=== PATIENT | female | born 1950 | race Caucasian/White ===

== ENCOUNTER → 2017-09-07 09:29 | Outpatient (CLI) | payer MEDICARE, OTHER, SELFPAY ==
--- NOTE | 2017-09-07 09:33 | DI.US.S_ITS ---
PROCEDURE: US SOFT TISSUE HEAD AND NECK INDICATIONS: supraclavicular swelling at base of neck, bilateral TECHNIQUE: Real-time scanning was performed of the neck region of interest, with image documentation. COMPARISON: None. FINDINGS: No mass lesion, focal fluid collection or architectural distortion. IMPRESSION: Unremarkable exam. Dictated by: Crys Baires M.D. on 09/07/2017 at 12:36 Approved by: Crys Baires M.D. on 09/07/2017 at 12:43
== END ==
PROVIDERS: PCP Family Medicine; Visit Provider Family Medicine
DX: R22.1 Localized swelling, mass and lump, neck (principal)
CPT/HCPCS: 76536

== ENCOUNTER → 2017-09-19 07:03 | Outpatient (CLI) | payer MEDICARE, OTHER, SELFPAY ==
[2017-09-19 08:12] LABS: Add Manual Diff / Slide Review NO; Basophils Percent Auto 1.7 % (0-2); Eosinophils Percent Auto 2.4 % (2-4); Hematocrit 42.8 % (36-46); Hemoglobin 14.5 g/dL (12.0-16.0); Lymphocytes Percent Auto 33.7 % (25-40); Mean Corpuscular HGB Conc 33.8 % (30-36); Mean Corpuscular Hemoglobin 29.8 PG (26-34); Mean Corpuscular Volume 88.4 fL (80-100); Monocytes Percent Auto 7.8 % (3-14); Neutrophils Absolute Auto 2800 /uL (3000-5900); Neutrophils Percent Auto 54.4 % (50-75); Platelet Count 254 X10^3/uL (150-400); Red Blood Cell Count 4.84 X10^6/uL (4.0-5.2); Red Cell Distribution Width 13.1 % (11.6-14.8); White Blood Cell Count 5.2 X10^3/uL (4.5-11.0)
[2017-09-19 08:53] LABS: Alanine Aminotransferase 26 IU/L (9-52); Albumin 4.4 g/dL (3.5-5.0); Albumin Globulin Ratio 1.5 (1.0-2.8); Alkaline Phosphatase 59 U/L (38-126); Aspartate Aminotransferase 23 IU/L (14-36); Bilirubin Total 0.5 mg/dL (0.2-1.3); Blood Urea Nitrogen 18 mg/dL (7-17); Calcium 9.9 mg/dL (8.4-10.2); Carbon Dioxide 31 mmol/L (22-32); Chloride 102 mmol/L (98-107); Cholesterol 292 mg/dL (140-199); Estimated Glomerular Filt Rate > 60.0 mL/min (>60); Globulin 2.9 g/dL (1.7-4.1); Glucose 98 mg/dL (80-110); HDL Cholesterol 73 mg/dL (40-60); HEMOLYSIS < 15 (0-50); LDL Cholesterol Calculated 195 mg/dL (<100); Potassium 4.3 mmol/L (3.4-5.1); Sodium 143 mmol/L (137-145); Total Protein 7.3 g/dL (6.3-8.2); Triglycerides 121 mg/dL (35-150)
[2017-09-19 09:18] LABS: Thyroid Stimulating Hormone 0.92 uIU/mL (0.47-4.68)
== END ==
PROVIDERS: PCP Family Medicine; Visit Provider Family Medicine
DX: E78.5 Hyperlipidemia, unspecified (principal); I10 Essential (primary) hypertension; I25.10 Atherosclerotic heart disease of native coronary artery without angina pectoris; E04.1 Nontoxic single thyroid nodule
CPT/HCPCS: 36415; 80053; 80061; 84443; 85025

== ENCOUNTER → 2017-10-02 09:38 | Outpatient (CLI) | payer MEDICARE, OTHER, SELFPAY | PROVIDERS: PCP Family Medicine; Visit Provider Family Medicine | DX: M85.852 Other specified disorders of bone density and structure, left thigh (principal); Z78.0 Asymptomatic menopausal state; Z90.722 Acquired absence of ovaries, bilateral | CPT/HCPCS: 77080 ==

== ENCOUNTER → 2017-10-12 10:35 | Outpatient (CLI) | payer MEDICARE, OTHER, SELFPAY ==
[2017-10-12 12:17] LABS: Vitamin D 25 Hydroxy (D3) 60.2 ng/mL (30.0-100.0)
== END ==
PROVIDERS: PCP Family Medicine; Visit Provider Family Medicine
DX: M85.80 Other specified disorders of bone density and structure, unspecified site (principal)
CPT/HCPCS: 36415; 82306

== ENCOUNTER 2017-11-02 08:30 | Outpatient (RCR) | payer MEDICARE, OTHER, SELFPAY ==
[2017-08-08 09:13] VITALS: BP 146/82; RESP 16; O2SAT 100; BMI 24.2
--- NOTE | 2017-08-08 10:51 | CR.IEVALNOTE ---
Addendum entered and electronically signed by June Gonzalez R.N. 08/08/17 13:22: * Original Note: Addendum entered and electronically signed by June Gonzalez R.N. 08/08/17 10:58: CHF. 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 BLOCKED LAD . EF HAS BEEN DECREASING SINCE THAT TIME AICD Yes Pacemaker Yes Heart Rhythm BALL MILL MIXER-BIVENTRICULAR PACING. FREQUENT PVS AND PACS Right Arm Blood Pressure (90/60-120/80 mmHg) 146/82 H Blood Pressure Method Manual Cuff/Auscultation BP Comment: LEFT ARM 144/80 Apical Resting Heart Rate: 60 Resting HR Comment: PACER/ICD. Target Heart Rate: 80 Pulse Assessment Method Pulse Ox/Monitor Respiratory Rate (12-24 breaths/min) 16 Respiratory Effort Non-Labored Respiratory Depth Normal Lung Sounds: CLEAR BILATERALLY Pulse Oximetry (91-100 %) 100 Nasal Cannula No Cardiac Rehabilitation Exercise Fall Risk History of Falling (Immediate or Yes Previous) Secondary Diagnosis (More Than 2 Medical No Diagnoses) Ambulatory Aid None/bed rest/nurse assist IV/Heparin Lock No Gait/Transferring Normal/bedrest/immobile Mental Status Oriented to own ability Score Total 25 Risk Level Moderate Fall Risk Action Implement Moderate Fall Risk Precautions Assistive Devices None Cardiac Rehabilitation Nutrition Evaluation Recent Lipid Blood Test Yes Date Blood Test Drawn 06/03/15 Total Cholesterol 297 Triglycerides 72 HDL 94 LDL 189 Lipid Medications No Goal for Lipids DOES NOT TOLERATE STATINS History of Diabetes No Cardiac Rehabilitation Weight Management Plan Height 167.64 cm Weight 68.039 kg Body Mass Index (BMI) 24.2 Girth Measurement (in inches) (cm) 31.5 Patient Goal(s) Lose 1-2 of Girth Lose 5-10 lbs Body Weight Vitamins & Supplements Yes Use Daily Intake Type RED WINE Nutrition Evaluation Referral to Diabetes Education No Nurse/Patient Discussion Yes Diet Discussion EATS HEALTHY Patient Following Diet Plan Yes Diet Dash Education 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 WILL ASSIST PEARL IN ATTAINING HER GOAL OF WALKING AN HOUR WITH HER FRIEND. THIS WILL GIVE HER CONFEDENCE. 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 HAS BEEN INCREASINGLY TIRED. HX OF FREQUENT PVS - 23% OF HER RHYTHM HAD BEEN PVCS. 5 WEEKS AGO WITH NO IMPROVEMENT IN EF AND FREQ PVCS BALL MILL MIXER IMPLANTED. Treatment Prescribed for Individual Yes Needs Date 08/08/17 Psych Consult No Discussion with Patient No Psychotropic Medications No PHQ9 Score 4 HQ Scoring Scale 0-4 = None Document 08/08/17 10:18 CFS (Rec: 08/08/17 10:51 CFS [id number]) Cardiac Rehabilitation Exercise Fall Risk Comment patient will use a saucer under physio ball and be next to a railing to start with and will reassess in 30 days. [place] Activity Status Index 9.89 Home Exercise walking Mode Comment: Home TM and outside Duration Comment: 10-20min Frequency Comment: daily Symptoms: Joint Pain Joint Stiffness Joint Swelling Body Alignment Posture Good Posture Ambulation Assistive Device None Comment R knee-cartilage, bilat arthritis-knees Exercise TM METS 2.91 Angina with Exercise no Exercise Tolerance Good Additional Comment frequent PVC's CR Pre Exercise Evaluation Orientation Self Pulse Check APOLINAR PRE Scale Exercise Safety Equipment Orientation Warm Up/Cool Down Patient Short-term Goal(s) Return to walking 1/hr daily either on home TM or outside. Build up endurance in CR to do full 40 min or cardio while in CR in 6wks. Patient Prison Goal(s) Return to walking trails in [place] with friend and dogs, walking for 1-2hrs. Increase stamina and balance so that there is no falling or trips by eventually using physio ball without a saucer in 12 wks. CR Exercises Prescription Exercise Duration (minutes) 20 METs (resistance level) 3 Frequency 2xwk RPE 11-14 Comment left side precautions, AICD implant Exercise Duration (minutes) 20 METs (resistance level) 3 Frequency 2xwk RPE 11-14 Pounds 3 Number of Reps 12 Number of Sets 2 Frequency 1xwk RPE 13-14 Band Resistance 3 Number of Reps 12 Number of Sets 1 Frequency 1xwk RPE 13-14
--- NOTE | 2017-08-08 11:17 | CR.IEVALNOTE ---
Addendum entered and electronically signed by Cherri Wilkes R.N. 08/10/17 15:52: * Addendum entered and electronically signed by Cherri Wilkes R.N. 08/10/17 07:52: Computer issues. Resending to MD for signature. Original Note: CR Initial Assessment Report CR Cardiac Rehab Initial Assessment Start: 08/08/17 09:12 Freq: Status: Active Protocol: Document 08/08/17 09:13 [facility] (Rec: 08/08/17 10:02 [facility] [id number]) Cardiac Rehabilitation Exercise Risk Risk High % 35 EF Comment: STENT 8 YEARS AGO. BLOCKED LAD . EF HAS BEEN DECREASING SINCE THAT TIME AICD Yes Pacemaker Yes Heart Rhythm PARTS COUNTERPERSON-BIVENTRICULAR PACING. FREQUENT PVS AND PACS Right Arm Blood Pressure (90/60-120/80 mmHg) 146/82 H Blood Pressure Method Manual Cuff/Auscultation BP Comment: LEFT ARM 144/80 Apical Resting Heart Rate: 60 Resting HR Comment: PACER/ICD. Target Heart Rate: 80 Pulse Assessment Method Pulse Ox/Monitor Respiratory Rate (12-24 breaths/min) 16 Respiratory Effort Non-Labored Respiratory Depth Normal Lung Sounds: CLEAR BILATERALLY Pulse Oximetry (91-100 %) 100 Nasal Cannula No Cardiac Rehabilitation Exercise Fall Risk History of Falling (Immediate or Yes Previous) Secondary Diagnosis (More Than 2 Medical No Diagnoses) Ambulatory Aid None/bed rest/nurse assist IV/Heparin Lock No Gait/Transferring Normal/bedrest/immobile Mental Status Oriented to own ability Score Total 25 Risk Level Moderate Fall Risk Action Implement Moderate Fall Risk Precautions Assistive Devices None Cardiac Rehabilitation Nutrition Evaluation Recent Lipid Blood Test Yes Date Blood Test Drawn 06/03/15 Total Cholesterol 297 Triglycerides 72 HDL 94 LDL 189 Lipid Medications No Goal for Lipids DOES NOT TOLERATE STATINS History of Diabetes No Cardiac Rehabilitation Weight Management Plan Height 167.64 cm Weight 68.039 kg Body Mass Index (BMI) 24.2 Girth Measurement (in inches) (cm) 31.5 Patient Goal(s) Lose 1-2 of Girth Lose 5-10 lbs Body Weight Vitamins & Supplements Yes Use Daily Intake Type RED WINE Nutrition Evaluation Referral to Diabetes Education No Nurse/Patient Discussion Yes Diet Discussion EATS HEALTHY Patient Following Diet Plan Yes Diet Dash Education Primary Language [place] [employer] Director Required No Hearing Ability Normal Visual Impairment No Limitations Education on Intake Lightheaded or Dizzy General Malaise Tobacco Use N/A Hx Hypertension Yes Goal <130/80 Medications COREG & ENALAPRIL Goal of BP <130/80 Yes Medications Reconciled Yes CR Psychosocial Evaluation Goal STATES IS TOO TIRED TO COMPLETE HER HOUR WALK WITH HER FRIEND. WILL ASSIST PEARL IN ATTAINING HER GOAL OF WALKING AN HOUR WITH HER FRIEND. THIS WILL GIVE HER CONFEDENCE. 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 HAS BEEN INCREASINGLY TIRED. HX OF FREQUENT PVS - 23% OF HER RHYTHM HAD BEEN PVCS. 5 WEEKS AGO WITH NO IMPROVEMENT IN EF AND FREQ PVCS PARTS COUNTERPERSON IMPLANTED. Treatment Prescribed for Individual Yes Needs Date 08/08/17 Psych Consult No Discussion with Patient No Psychotropic Medications No PHQ9 Score 4 HQ Scoring Scale 0-4 = None Document 08/08/17 10:18 CFS (Rec: 08/08/17 10:51 CFS [id number]) Cardiac Rehabilitation Exercise Fall Risk Comment patient will use a saucer under physio ball and be next to a railing to start with and will reassess in 30 days. [place] Activity Status Index 9.89 Home Exercise walking Mode Comment: Home TM and outside Duration Comment: 10-20min Frequency Comment: daily Symptoms: Joint Pain Joint Stiffness Joint Swelling Body Alignment Posture Good Posture Ambulation Assistive Device None Comment R knee-cartilage, bilat arthritis-knees Exercise TM METS 2.91 Angina with Exercise no Exercise Tolerance Good Additional Comment frequent PVC's CR Pre Exercise Evaluation Orientation Self Pulse Check APOLINAR PRE Scale Exercise Safety Equipment Orientation Warm Up/Cool Down Patient Short-term Goal(s) Return to walking 1/hr daily either on home TM or outside. Build up endurance in CR to do full 40 min or cardio while in CR in 6wks. Patient [facility] Picker Goal(s) Return to walking trails in [place] with friend and dogs, walking for 1-2hrs. Increase stamina and balance so that there is no falling or trips by eventually using physio ball without a saucer in 12 wks. CR Exercises Prescription Exercise Duration (minutes) 20 METs (resistance level) 3 Frequency 2xwk RPE 11-14 Comment left side precautions, AICD implant Exercise Duration (minutes) 20 METs (resistance level) 3 Frequency 2xwk RPE 11-14 Pounds 3 Number of Reps 12 Number of Sets 2 Frequency 1xwk RPE 13-14 Band Resistance 3 Number of Reps 12 Number of Sets 1 Frequency 1xwk RPE 13-14
--- NOTE | 2017-09-06 10:29 | CR.REVALNOTE ---
CR Re-Assessment Report Dx: CHF CR Cardiac Rehab Re-Assessment Start: 09/06/17 09:41 Freq: Status: Active Protocol: Document 09/06/17 09:41 ARTHUR (Rec: 09/06/17 09:49 [facility] [id number]) Cardiac Rehab Exercise Risk Re-Eval Dx: CHF Comment: EF 35 %, NO REPEAT CURRENTLY SCHEDULED. ADVISED TO CALL AND INQUIRE TO SEE IF THEY WANTA NEW ECHO PRIOR TO THE F/ U APPT IN Risk High Heart Rhythm SB W/FREQUENT PVC'S. RECENTLY HAD PACER ADJUSTED AND CARVEDILOL UPPED TO 12.5MG BID Cardiac Rehab Nutrition Re-Eval Lipids Re-Drawn No Lipid Medications No: NOT TOLERANT Goal for Lipids SEEING HER PRIMARY CARE PCP SOON WITH LABS TO BE ORDERED. LAST LIPID >2 YEARS OLD ADVISED TO ASK FOR A REPEAT. History of Diabetes No Weight 68.039 kg Progress to Weight Goal NO CHANGE. FEELS SHE'S STUCK Dietary Consult No Nurse/Patient Discussion Yes Nutrition Class Yes Dietary Goal verbalized by Patient Yes: DISCUSSED INTAKE, KNOWS SHE NEEDS TO DO PORTION CONTROL Progress Note DISCUSSED CUTTING OUT THE FROZEN MEALS IN LIEU OF SELF- PREPARED ONES Education Tobacco Use N/A Hypertension 126/76 PRE, 112/64 POST Medications CARVEDILOL, ENALIPRIL, LASIX Progress to Goal AT GOAL Medication Reconciled YES CR Psychosocial Re-Evaluation Progress to Goal FEELS GOOD THAT SHE CAN NOW DO AN HOUR AT A TIME WALKING AT HOME. WANTS HER EF TO IMPROVE AND IS LOOKING FORWARD TO HER TRIP TO [place] Stress Managed YES Psych Consult No Stress Management Class Yes Uses Stress Management Skills Yes Coping Techniques Yes Relaxation Techniques Yes Positive Support Yes CR Psychosocial Provider Eval Treatment Prescribed for Individual Yes Needs No Treatment Change Yes: Please Continue with Cardiopulmonary Rehabilitation as Ordered Date 09/06/17 Document 09/06/17 10:17 AA (Rec: 09/06/17 10:28 AA [id number]) CR Lifestyle Re-Assessment Home Exercise Yes Mode Comment walking Duration Comment 20-30 mins Frequency Comment daily Achieved Exercise Re-Evaluation Nustep MET Goal 4.65 Treadmill MET Goal 6.09 RPE n/a Weights 3 Bands 4 Equipment Goals TM: 7.0 METS NS: 5.5 METS Number/Value 5 LVL 4 Progress to Goal INCREASE TOLERATED % Improvement TM: 156% IMP NS: 47% IMP Short Term Walking 20-30 mins daily at home. Is able to complete full 40 mins of cardio in CR. Shelter Walking dog with friends, no trails or elevations yet, bc of knee pain with incline. No longer needs saucer under physio ball.
--- NOTE | 2017-10-05 10:20 | CR.REVALNOTE ---
CR RE Assessment Report DX: ISCHEMIC CARDIOMYOPATHY. CHF CR Cardiac Rehab Re-Assessment Start: 09/06/17 09:41 Freq: Status: Active Protocol: Document 09/06/17 09:41 ARTHUR (Rec: 09/06/17 09:49 AR[facility] [id number]) Cardiac Rehab Exercise Risk Re-Eval Dx: CHF Comment: EF 35 %, NO REPEAT CURRENTLY SCHEDULED. ADVISED TO CALL AND INQUIRE TO SEE IF THEY WANTA NEW ECHO PRIOR TO THE F/ U APPT IN Risk High Heart Rhythm SB W/FREQUENT PVC'S. RECENTLY HAD PACER ADJUSTED AND CARVEDILOL UPPED TO 12.5MG BID Cardiac Rehab Nutrition Re-Eval Lipids Re-Drawn No Lipid Medications No: NOT TOLERANT Goal for Lipids SEEING HER PRIMARY CARE PCP SOON WITH LABS TO BE ORDERED. LAST LIPID >2 YEARS OLD ADVISED TO ASK FOR A REPEAT. History of Diabetes No Weight 68.039 kg Progress to Weight Goal NO CHANGE. FEELS SHE'S STUCK Dietary Consult No Nurse/Patient Discussion Yes Nutrition Class Yes Dietary Goal verbalized by Patient Yes: DISCUSSED INTAKE, KNOWS SHE NEEDS TO DO PORTION CONTROL Progress Note DISCUSSED CUTTING OUT THE FROZEN MEALS IN LIEU OF SELF- PREPARED ONES Education Tobacco Use N/A Hypertension 126/76 PRE, 112/64 POST Medications CARVEDILOL, ENALIPRIL, LASIX Progress to Goal AT GOAL Medication Reconciled YES CR Psychosocial Re-Evaluation Progress to Goal FEELS GOOD THAT SHE CAN NOW DO AN HOUR AT A TIME WALKING AT HOME. WANTS HER EF TO IMPROVE AND IS LOOKING FORWARD TO HER TRIP TO [place] Stress Managed YES Psych Consult No Stress Management Class Yes Uses Stress Management Skills Yes Coping Techniques Yes Relaxation Techniques Yes Positive Support Yes CR Psychosocial Provider Eval Treatment Prescribed for Individual Yes Needs No Treatment Change Yes: Please Continue with Cardiopulmonary Rehabilitation as Ordered Date 09/06/17 Document 09/06/17 10:17 AA (Rec: 09/06/17 10:28 AA [id number]) CR Lifestyle Re-Assessment Home Exercise Yes Mode Comment walking Duration Comment 20-30 mins Frequency Comment daily Achieved Exercise Re-Evaluation Nustep MET Goal 4.65 Treadmill MET Goal 6.09 RPE n/a Weights 3 Bands 4 Equipment Goals TM: 7.0 METS NS: 5.5 METS Number/Value 5 LVL 4 Progress to Goal INCREASE TOLERATED % Improvement TM: 156% IMP NS: 47% IMP Short Term Walking 20-30 mins daily at home. Is able to complete full 40 mins of cardio in CR. Group Home Walking dog with friends, no trails or elevations yet, bc of knee pain with incline. No longer needs saucer under physio ball. Document 10/05/17 09:09 AR[facility] (Rec: 10/05/17 09:13 [facility] [id number]) Cardiac Rehab Exercise Risk Re-Eval Dx: ISCHEMIC CARDIOMYOPATHY Comment: DUE FOR REPEAT ECHO AFTER F/U WITH DR. ALEXANDER Risk High Heart Rhythm SR WITH PVC'S Cardiac Rehab Nutrition Re-Eval Lipids Re-Drawn Yes Date 09/19/17 Total Cholesterol 292 Triglycerides 121 HDL 73 LDL 195 Lipid Medications No: COQ-10 AND FISH OIL Goal for Lipids NOWHERE NEAR GOAL. MEETING AGAIN WITH PCP TO DISCUSS. IS INTOLERANT TO STATINS History of Diabetes No Weight 67.585 kg Progress to Weight Goal LOST 1 #, STILL WANTS TO TAKE OFF MORE Dietary Consult No Nurse/Patient Discussion Yes Nutrition Class Yes: ATTENDED GIVEN Dietary Goal verbalized by Patient Yes Progress Note PT HAS MODIFIED SOME OF THE FROZEN MEALS SHE HAS BEEN EATING IN LIEU OF FRESH STUFF Education Tobacco Use N/A Hypertension 122/78 PRE, 118/78 POST Medications VASOTEC, COREG Progress to Goal AT GOAL Medication Reconciled NO CHANGES SINCE LAST ASSESSMENT CR Psychosocial Re-Evaluation Progress to Goal FEELING BETTER GRADUALLY, STILL TIRED AFTER BUSY DAYS Stress Managed YES Psych Consult No Stress Management Class Yes Uses Stress Management Skills Yes Coping Techniques Yes Relaxation Techniques Yes Positive Support Yes CR Psychosocial Provider Eval Treatment Prescribed for Individual Yes Needs No Treatment Change Yes: Please Continue with Cardiopulmonary Rehabilitation as Ordered Date 10/05/17 Document 10/05/17 10:15 AA (Rec: 10/05/17 10:20 AA [id number]) Cardiac Rehab Exercise Risk Re-Eval Apical Resting Heart Rate: 59 Target Heart Rate: 103 Target Heart Rate Comment: HIIT HR 117 Strength: Normal Pulse Rhythm: Regular CR Lifestyle Re-Assessment Home Exercise Yes Mode Comment Walking Duration Comment 45 mins Frequency Comment daily Achieved Exercise Re-Evaluation Nustep MET Goal 5.08 Treadmill MET Goal 7.23 Weights 5 Bands 4 Equipment Goals TM 8.0 METS NS 6.0 METS Number/Value 6 LVL 5 Progress to Goal INCREASE TOLERATED % Improvement TM 203% NS 60% Short Term Walking 45 mins, about 2 miles daily at home. Is gradually increasing incline. Group Home Walking dog with friends, is walking half way on the trails and back on the road, still experiencing knee pain with incline.
--- NOTE | 2017-10-11 16:08 | CR.EDUC ---
CR Education Report CR Education Start: 08/08/17 09:12 Freq: Status: Active Protocol: Document 08/08/17 10:03 JC (Rec: 08/08/17 10:03 [facility] [id number]) CR Education Education DISCUSSED HER AICD AND HER TACHYCARDIA AN DWHEN TO NOTIFY MD. Document 08/08/17 11:15 JCP (Rec: 08/08/17 11:18 [facility] [id number]) CR Education Education CALLED AND LEFT MESSAGE FOR DR Aubrie VELAZQUEZ RN TO FAX STRIPS OF HER RHYTHM. WITH LITTLE EXERTION [id number] - ASYMPTOMATIC.[place]AS MESSAGE RETURNED FROM [facility] AND STRIPS SENT TO .NICOLAS 08/08/17 11:17 CR Initial Eval. Note by June Gonzalez Addendum entered and electronically signed by Cherri Wilkes R.N. 08/10/17 15:52: * Addendum entered and electronically signed by Cherri Wilkes R.N. 08/10/17 07:52: Computer issues. Resending to MD for signature. Original Note: CR Initial Assessment Report CR Cardiac Rehab Initial Assessment Start: 08/08/17 09:12 Freq: Status: Active Protocol: Document 08/08/17 09:13 JCP (Rec: 08/08/17 10:02 [facility] [id number]) Cardiac Rehabilitation Exercise Risk Risk High % 35 EF Comment: STENT 8 YEARS AGO. BLOCKED LAD . EF HAS BEEN DECREASING SINCE THAT TIME AICD Yes Pacemaker Yes Heart Rhythm PRIVATE SECRETARY-BIVENTRICULAR PACING. FREQUENT PVS AND PACS Right Arm Blood Pressure (90/60-120/80 mmHg) 146/82 H Blood Pressure Method Manual Cuff/Auscultation BP Comment: LEFT ARM 144/80 Apical Resting Heart Rate: 60 Resting HR Comment: PACER/ICD. Target Heart Rate: 80 Pulse Assessment Method Pulse Ox/Monitor Respiratory Rate (12-24 breaths/min) 16 Respiratory Effort Non-Labored Respiratory Depth Normal Lung Sounds: CLEAR BILATERALLY Pulse Oximetry (91-100 %) 100 Nasal Cannula No Cardiac Rehabilitation Exercise Fall Risk History of Falling (Immediate or Yes Previous) Secondary Diagnosis (More Than 2 Medical No Diagnoses) Ambulatory Aid None/bed rest/nurse assist IV/Heparin Lock No Gait/Transferring Normal/bedrest/immobile Mental Status Oriented to own ability Score Total 25 Risk Level Moderate Fall Risk Action Implement Moderate Fall Risk Precautions Assistive Devices None Cardiac Rehabilitation Nutrition Evaluation Recent Lipid Blood Test Yes Date Blood Test Drawn 06/03/15 Total Cholesterol 297 Triglycerides 72 HDL 94 LDL 189 Lipid Medications No Goal for Lipids DOES NOT TOLERATE STATINS History of Diabetes No Cardiac Rehabilitation Weight Management Plan Height 167.64 cm Weight 68.039 kg Body Mass Index (BMI) 24.2 Girth Measurement (in inches) (cm) 31.5 Patient Goal(s) Lose 1-2 of Girth Lose 5-10 lbs Body Weight Vitamins & Supplements Yes Use Daily Intake Type RED WINE Nutrition Evaluation Referral to Diabetes Education No Nurse/Patient Discussion Yes Diet Discussion EATS HEALTHY Patient Following Diet Plan Yes Diet Dash Education Primary Language CONGOLESE Obstetrics Gyn Required No Hearing Ability Normal Visual Impairment No Limitations Education on Intake Lightheaded or Dizzy General Malaise Tobacco Use N/A Hx Hypertension Yes Goal <130/80 Medications COREG & ENALAPRIL Goal of BP <130/80 Yes Medications Reconciled Yes CR Psychosocial Evaluation Goal STATES IS TOO TIRED TO COMPLETE HER HOUR WALK WITH HER FRIEND. WILL ASSIST PEARL IN ATTAINING HER GOAL OF WALKING AN HOUR WITH HER FRIEND. THIS WILL GIVE HER CONFEDENCE. Identifies Stressors HER TIREDNESS IS STRESSFUL FOR HER Psych Consult No Discussion with Patient No Psychotropic Medications No PHQ9 Score 4 HQ Scoring Scale 0-4 = None Positive Support AND FRIEND Situation LIVES AT HOME ON [facility] WITH Employment Status Retired Occupation / Employer FLIGHT ATTENDENT Ready for Change Number +32 CR Psychosocial Eval Continued Sternotomy Incision N/A Graft Site & Incision N/A Heart Murmur NONE Lung Sounds CLEAR Edema NONE Stress Management Class Yes Heart Disease & Emotion Film Yes Readiness Cooperative Motivated Patient's Story SINCE STENT 8 YEARS AGO EF HAS DECLINED AND HAS NOT CHANGED FROM 35%. HAS BEEN INCREASINGLY TIRED. HX OF FREQUENT PVS - 23% OF HER RHYTHM HAD BEEN PVCS. 5 WEEKS AGO WITH NO IMPROVEMENT IN EF AND FREQ PVCS PRIVATE SECRETARY IMPLANTED. Treatment Prescribed for Individual Yes Needs Date 08/08/17 Psych Consult No Discussion with Patient No Psychotropic Medications No PHQ9 Score 4 HQ Scoring Scale 0-4 = None Document 08/08/17 10:18 CFS (Rec: 08/08/17 10:51 CFS [id number]) Cardiac Rehabilitation Exercise Fall Risk Comment patient will use a saucer under physio ball and be next to a railing to start with and will reassess in 30 days. [place] Activity Status Index 9.89 Home Exercise walking Mode Comment: Home TM and outside Duration Comment: 10-20min Frequency Comment: daily Symptoms: Joint Pain Joint Stiffness Joint Swelling Body Alignment Posture Good Posture Ambulation Assistive Device None Comment R knee-cartilage, bilat arthritis-knees Exercise TM METS 2.91 Angina with Exercise no Exercise Tolerance Good Additional Comment frequent PVC's CR Pre Exercise Evaluation Orientation Self Pulse Check APOLINAR PRE Scale Exercise Safety Equipment Orientation Warm Up/Cool Down Patient Short-term Goal(s) Return to walking 1/hr daily either on home TM or outside. Build up endurance in CR to do full 40 min or cardio while in CR in 6wks. Patient Fpc Goal(s) Return to walking trails in [place] with friend and dogs, walking for 1-2hrs. Increase stamina and balance so that there is no falling or trips by eventually using physio ball without a saucer in 12 wks. CR Exercises Prescription Exercise Duration (minutes) 20 METs (resistance level) 3 Frequency 2xwk RPE 11-14 Comment left side precautions, AICD implant Exercise Duration (minutes) 20 METs (resistance level) 3 Frequency 2xwk RPE 11-14 Pounds 3 Number of Reps 12 Number of Sets 2 Frequency 1xwk RPE 13-14 Band Resistance 3 Number of Reps 12 Number of Sets 1 Frequency 1xwk RPE 13-14 Initialized on 08/08/17 11:17 - END OF NOTE Document 08/10/17 10:12 ARTHUR (Rec: 08/10/17 10:12 [facility] [id number]) CR Education Education Pt intro and history review. Updated Coreg and discussed HR and ectopy. Document 08/16/17 11:25 ARTHUR (Rec: 08/16/17 11:25 [facility] [id number]) CR Education Education mets with kerri Document 08/23/17 11:58 JCP (Rec: 08/23/17 11:58 JCP [id number]) CR Education Education AED REVIEW Document 08/30/17 14:20 JCP (Rec: 08/30/17 14:21 JCP [id number]) CR Education Education MET WITH HARESH STONE RD Document 09/06/17 09:41 ARTHUR (Rec: 09/06/17 09:41 ARTHUR [id number]) CR Education Education HOLISTIC NUTRITION AND MEDITATION WITH SHANTELLE Document 09/20/17 09:41 ARTHUR (Rec: 09/20/17 09:41 AR[facility] [id number]) CR Education Education MRSA WITH CHIVO Document 09/25/17 11:37 JCP (Rec: 09/25/17 11:39 JCP [id number]) CR Education Education DISCUSSED HOW HER AICD IS PROGRAMMED AND WHAT HAPPENS IF IT GOES OFF. CONCERNED ABOUT HER TRIP TO [place] IN THE FALL. ALSO DISCUSSED CPR AND THAT IF IT GOES OFF SHE WILL BE CONSCIOUS AND NOT TO DO CPR. NICOLAS Document 09/27/17 15:51 JCP (Rec: 09/27/17 15:52 JCP [id number]) CR Education Education ANTI INFLAMMATORY FOODS AND MEDITATION Document 10/04/17 15:08 JCP (Rec: 10/04/17 15:09 JCP [id number]) CR Education Education MET WITH HARESH STONE RD Document 10/11/17 16:07 JCP (Rec: 10/11/17 16:08 JCP [id number]) CR Education Education MET WITH KERRI ANAYA METS
[2017-11-02 15:55] VITALS: BP 138/88; BMI 25.0
== END 2017-11-03 08:26 ==
LOC: CAR 08:30
PROVIDERS: PCP Family Medicine; Visit Provider Internal Medicine Cardiovascular Disease
DX: I50.22 Chronic systolic (congestive) heart failure (principal); I25.5 Ischemic cardiomyopathy
CPT/HCPCS: 93798

== ENCOUNTER → 2017-12-25 10:49 | Outpatient (CLI) | payer MEDICARE, OTHER, SELFPAY ==
--- NOTE | 2017-12-25 | DI.MG.S_ITS ---
BILATERAL DIGITAL SCREENING MAMMOGRAM 3D/2D WITH CAD: 12/25/2017 CLINICAL: Routine screening. Family history of breast cancer. Comparison is made to exams dated: 10/27/2015 mammogram, 11/01/2016 mammogram, and 10/09/2014 mammogram - [facility]. The tissue of both breasts is heterogeneously dense. This may lower the sensitivity of mammography. Current study was also evaluated with a Computer Aided Detection (CAD) system. No significant masses, calcifications, or other findings are seen in either breast. There has been no significant interval change. IMPRESSION: NEGATIVE There is no mammographic evidence of malignancy. A 1 year screening mammogram is recommended. This exam was interpreted at Station ID: [id number]. NOTE: For mammograms, a report in lay terms will be sent to the patient. Approximately 15% of breast malignancies will not be visualized mammographically. In the management of a palpable breast mass, a negative mammogram must not discourage biopsy of a clinically suspicious lesion. Electronically Signed By: Vita gtz/vernon:12/25/2017 11:43:28 letter sent: Normal Exam ACR BI-RADS Category 1: Negative 3341F
== END ==
PROVIDERS: PCP Family Medicine; Visit Provider Family Medicine
DX: Z12.31 Encounter for screening mammogram for malignant neoplasm of breast (principal); Z80.3 Family history of malignant neoplasm of breast
CPT/HCPCS: 77063; 77067

== ENCOUNTER → 2018-11-01 09:05 | Outpatient (CLI) | payer MEDICARE, OTHER, SELFPAY ==
[2018-10-01 15:20] VITALS: BMI 25.0
[2018-11-01 10:16] LABS: C-Reactive Protein Quant < 0.5 mg/dL (<1.0)
[2018-11-01 10:25] LABS: Erythrocyte Sedimentation Rate 5 MM/HR (0-20)
== END ==
PROVIDERS: PCP Family Medicine; Visit Provider Family Medicine
DX: R51 Headache (principal)
CPT/HCPCS: 36415; 85651; 86140

== ENCOUNTER → 2018-11-26 09:05 | Outpatient (CLI) | payer MEDICARE, OTHER, SELFPAY ==
[2018-10-01 15:20] VITALS: BMI 25.0
[2018-11-26 11:29] LABS: BUN Creatinine Ratio 21.3 (6-22); Blood Urea Nitrogen 17 mg/dL (7-17); Calcium 9.9 mg/dL (8.4-10.2); Carbon Dioxide 30 mmol/L (22-32); Chloride 102 mmol/L (98-107); Estimated Glomerular Filt Rate > 60.0 mL/min (>60); Glucose 85 mg/dL (80-110); HEMOLYSIS < 15 (0-50); Potassium 4.6 mmol/L (3.4-5.1); Sodium 138 mmol/L (137-145)
== END ==
PROVIDERS: PCP Family Medicine; Visit Provider Nurse Practitioner Family
DX: I50.22 Chronic systolic (congestive) heart failure (principal)
CPT/HCPCS: 36415; 80048

== ENCOUNTER 2018-12-18 09:02 | Day surgery (SDC) | payer MEDICARE, OTHER, SELFPAY ==
[2018-10-01 15:20] VITALS: BMI 25.0
[2018-12-18 09:24] VITALS: BP 149/81; PULSE 65; RESP 16; TEMP 36.8; O2SAT 98; BMI 23.9
[2018-12-18] MEDS: LACTATED RINGERS 1,000 ML 42 ML IV (09:43)
--- NOTE | 2018-12-18 10:22 | PM.HP.1 ---
History of Present Illness History of Present Illness Date Patient Seen: 12/18/18 Time Patient Seen: 10:22 Chief complaint: [id number] SCREENING COLONOSCOPY UNDER GENERAL Narrative: 68-year-old with colonoscopy 5 years ago significant for adenomatous polyps. She presents today for screening colonoscopy. Please refer to the H and P dated 10/12/2018 for further detail. She has a history of [place] pacemaker and CHF EF about 40% and will be performed today with anesthesia provider. Patient History Medical History Abnormal Pap smear of cervix (Resolved 1997) Cervical cancer (Resolved 1997) Chicken pox (Resolved) Colon polyps (Resolved 2008) Coronary artery disease involving [place] coronary artery of [place] heart without angina pectoris (Chronic 07/23/15) Essential hypertension (Chronic 07/23/15) Finger fracture (Resolved ~1999) Goiter (Chronic) History of placement of stent in LAD coronary artery (Resolved 2009) Hyperlipidemia (Chronic 07/23/15) Ischemic cardiomyopathy (Chronic) Measles (Resolved) Pacemaker (Chronic) Shingles (Resolved) Shoulder pain (Chronic 2008) Skin cancer (Resolved 1994) Systolic heart failure (Chronic) Thyroid nodule (Chronic 2013) Surgical History Anesthesia (Resolved) History of colonoscopy (Resolved 2013) History of tonsillectomy (Resolved) Status post hysterectomy (Resolved 1997) Family History Brother Age: 70 Hypertension High cholesterol Pulmonary disease Father Coronary artery disease involving [place] coronary artery of [place] heart without angina pectoris Cancer Heart disease Hypertension High cholesterol Stroke Grandfather Cancer Grandmother Cancer Mother Malignant neoplasm of female breast, unspecified laterality, unspecified site of breast Liver cancer Lung cancer Grandfather Heart disease Social History marital status: household members: spouse pets and animals: Yes education level: college other: gardening,walking seatbelt use: always water heater temp set < 120 deg: Yes working smoke detector in home: Yes fire extinguisher in home: Yes carbon monox detector in home: No firearms in home: No do you feel safe at home: Yes Smoking Status: Former smoker alcohol intake: current during the past year weight has: remained stable daily servings fruits/ve-4 caffeine: Yes Type(s) of exercise: walking frequency: 5-6 times per week duration: 30-45 minutes/day Family & Social History Family History Brother Age: 70 Hypertension High cholesterol Pulmonary disease Father Coronary artery disease involving [place] coronary artery of [place] heart without angina pectoris Cancer Heart disease Hypertension High cholesterol Stroke Grandfather Cancer Grandmother Cancer Mother Malignant neoplasm of female breast, unspecified laterality, unspecified site of breast Liver cancer Lung cancer Grandfather Heart disease Social History: household members spouse other gardening,walking Tobacco & Substance use: Smoking Status Former smoker alcohol intake current Meds Home Medications and Allergies Home Medications Medication Instructions Recorded Confirmed Type ASPIRIN (Aspirin Low Dose) 81 mg PO Q DAY #0 06/27/09 11/13/18 History carvedilol 3.125 mg tablet 12.5 mg PO BID tab 09/01/17 11/13/18 History furosemide 20 mg tablet 10 mg PO DAILY 10/11/17 11/13/18 History cholecalciferol (vitamin D3) 2,000 2,000 unit PO DAILY 10/30/18 11/13/18 History unit capsule ezetimibe 10 mg tablet 10 mg PO DAILY #30 tab 10/30/18 11/13/18 Rx fluticasone propionate 50 2 spray NASAL DAILY PRN #15.8 gram 10/30/18 11/13/18 Rx mcg/actuation nasal spray,suspension amoxicillin 875 mg tablet 875 mg PO BID #14 tab 11/13/18 11/13/18 Rx enalapril maleate 20 mg tablet 10 mg PO BID #180 tab 11/13/18 11/13/18 Rx Allergies Allergy/AdvReac Type Severity Reaction Status Date / Time Lmlfcof-Pnd-Gxi Reductase Allergy Mild high Verified 12/18/18 09:39 Inhibitor dose-muscle [USORHBT-AEE-PPH REDUCTASE pain,hair INHIBITOR] loss Review of Systems Review of Systems ROS Unobtainable: All systems reviewed & are unremarkable except as noted in HPI and below Exam Vital Signs (past 8 hours): - 12/18/18 09:24 Temperature 98.3 F Pulse Rate 65 Respiratory Rate 16 Blood Pressure 149/81 H Pulse Oximetry 98 Oxygen Delivery Method Room Air Narrative Exam Narrative: General-no acute distress, well nourished HEENT-moist mucous membranes, no scleral icterus Neck-supple, no lymphadenopathy Chest- non labored respirations, clear to auscultation bilaterally Cardiac-regular rate no peripheral edema Abdomen-soft, nontender, non distended Extremities-warm, well perfused Neurological-alert and oriented, no focal deficits Assessment & Plan Assessment & Plan narrative: Patient is requiring colorectal screening. Colonoscopy is recommended. Technical details were discussed. Risks, benefits, alternatives explained. Risks including but not limited to sedation, aspiration, bleeding, pain, missed lesion, incomplete examination, need for further radiographic studies, colonic perforation, need for major abdominal surgery, and all attendant risks major surgery were discussed at length. All questions were answered to their satisfaction, and they voiced understanding.
[2018-12-18 10:56] VITALS: BP 75/46; PULSE 60; RESP 13; TEMP 36.7; O2SAT 93
[2018-12-18 10:58] VITALS: BP 93/59; PULSE 103; RESP 17; TEMP 36.7; O2SAT 97
[2018-12-18 11:06] VITALS: BP 103/62; PULSE 60; RESP 18; O2SAT 98
--- NOTE | 2018-12-18 11:10 | PM.OP.ENDO ---
Operative Date/Time/Diagnoses Date of procedure: 12/18/18 Time of procedure: 11:10 Pre-op diagnosis: screening colonoscopy Post-op diagnosis: same Procedure & Clinicians Study performed: Screening colonoscopy Same procedure as scheduled: Yes Indications: 68-year-old female who underwent a colonoscopy 5 years ago demonstrating adenomatous polyps presents for screening. She has a history of myocardial infarction congestive heart failure and a pacemaker and for these reasons the colonoscopy is being performed in the operating room with an anesthesia provider. Surgeon: Nestor Nixon Procedure Notes SCOAP/Timeout: performed Procedure in detail: Patient placed in left lateral decubitus position. Time out was performed. Procedural sedation was administered with Versed and Fentanyl. A rectal exam demonstrated no external hemorrhoids no internal masses. Colonoscopy scope was placed into the rectum and advanced through the colon to the cecum. The ileocecal valve was identified. The scope was then slowly withdrawn examining colon thoroughly in all directions. The colonoscopy was normal, there were no masses polyps colitis or diverticulosis. The scope was retroflexed within the rectum demonstrated grade 1 internal hemorrhoids. The rectum was desufflated and the scope removed. Patient tolerated procedure well. Scope withdrawal time: 6 Sedation minutes: 22 Specimen(s): none sent Complications: none Impression: normal colonoscopy Post-procedure Recommendations: Colonscopy in 10 years Disposition: PACU
[2018-12-18 11:24] VITALS: BP 101/72; PULSE 60; RESP 15; TEMP 36.6; O2SAT 98
[2018-12-18 11:36] VITALS: BP 123/76; PULSE 60; RESP 14; TEMP 36.6; O2SAT 97
== END 2018-12-18 11:47 | disposition home or self-care (01) ==
PROVIDERS: PCP Family Medicine; Visit Provider Surgery
PROC: 0DJD8ZZ Inspection of Lower Intestinal Tract, Via Natural or Artificial Opening Endoscopic (ICD-10-PCS; CPT 45378; principal; 2018-12-18 10:45)
DX: Z86.010 Personal history of colon polyps (principal); K64.0 First degree hemorrhoids
CPT/HCPCS: G0105; 99152; J2250; J2704; J3010

== ENCOUNTER → 2019-01-30 09:04 | Outpatient (CLI) | payer MEDICARE, OTHER, SELFPAY ==
[2018-10-01 15:20] VITALS: BMI 25.0
--- NOTE | 2019-01-30 | DI.MG.S_ITS ---
BILATERAL DIGITAL SCREENING MAMMOGRAM 3D/2D WITH CAD: 01/30/2019 CLINICAL: Routine screening. Family history of breast cancer. Comparison is made to exams dated: 12/25/2017 mammogram, 11/01/2016 mammogram, and 10/27/2015 mammogram - [facility]. The tissue of both breasts is heterogeneously dense. This may lower the sensitivity of mammography. Current study was also evaluated with a Computer Aided Detection (CAD) system. No significant masses, calcifications, or other findings are seen in either breast. There has been no significant interval change. IMPRESSION: NEGATIVE There is no mammographic evidence of malignancy. A 1 year screening mammogram is recommended. This exam was interpreted at Station ID: [id number]. NOTE: For mammograms, a report in lay terms will be sent to the patient. Approximately 15% of breast malignancies will not be visualized mammographically. In the management of a palpable breast mass, a negative mammogram must not discourage biopsy of a clinically suspicious lesion. Electronically Signed By: Brody zarate/vernon:01/30/2019 10:01:15 letter sent: Normal Exam ACR BI-RADS Category 1: Negative 3341F
== END ==
PROVIDERS: PCP Family Medicine; Visit Provider Family Medicine
DX: Z12.31 Encounter for screening mammogram for malignant neoplasm of breast (principal); Z80.3 Family history of malignant neoplasm of breast
CPT/HCPCS: 77063; 77067

== ENCOUNTER → 2019-04-24 08:59 | Outpatient (CLI) | payer MEDICARE, OTHER, SELFPAY ==
[2018-10-01 15:20] VITALS: BMI 25.0
[2019-04-24 10:43] LABS: Alanine Aminotransferase 16 IU/L (<35); Albumin 4.1 g/dL (3.5-5.0); Albumin Globulin Ratio 1.3 (1.0-2.8); Alkaline Phosphatase 64 U/L (38-126); Aspartate Aminotransferase 24 IU/L (14-36); BUN Creatinine Ratio 16.3 (6-22); Bilirubin Total 0.5 mg/dL (0.2-1.3); Blood Urea Nitrogen 13 mg/dL (7-17); Carbon Dioxide 29 mmol/L (22-32); Chloride 102 mmol/L (98-107); Estimated Glomerular Filt Rate > 60.0 mL/min (>60); Globulin 3.1 g/dL (1.7-4.1); Glucose 99 mg/dL (80-110); HEMOLYSIS < 15 (0-50); Potassium 4.3 mmol/L (3.4-5.1); Sodium 139 mmol/L (137-145); Total Protein 7.2 g/dL (6.3-8.2)
[2019-04-24 11:00] LABS: Free T3, Triiodothyronine Free 3.89 pg/mL (2.77-5.27); Free T4, Direct Thyroxine 0.92 ng/dL (0.78-2.19)
[2019-04-24 11:03] LABS: Erythrocyte Sedimentation Rate 3 MM/HR (0-20)
[2019-04-24 11:05] LABS: Add Manual Diff / Slide Review NO; Basophils Absolute Auto 100 /uL (0-100); Basophils Percent Auto 1.3 % (0-2); Eosinophils Absolute Auto 100 /uL (0-450); Eosinophils Percent Auto 2.7 % (2-4); Hematocrit 42.8 % (36-46); Hemoglobin 14.4 g/dL (12.0-16.0); Lymphocytes Absolute Auto 1800 /uL (1100-4500); Lymphocytes Percent Auto 37.2 % (25-40); Mean Corpuscular HGB Conc 33.7 % (30-36); Mean Corpuscular Hemoglobin 30.2 PG (26-34); Mean Corpuscular Volume 89.7 fL (80-100); Monocytes Absolute Auto 500 /uL (0-900); Monocytes Percent Auto 10.8 % (3-14); Neutrophils Absolute Auto 2300 /uL (1500-7000); Platelet Count 223 X10^3/uL (150-400); Red Blood Cell Count 4.77 X10^6/uL (4.0-5.2); Red Cell Distribution Width 13.4 % (11.6-14.8); White Blood Cell Count 4.8 X10^3/uL (4.5-11.0)
[2019-04-24 11:13] LABS: Thyroid Stimulating Hormone 0.96 uIU/mL (0.47-4.68)
[2019-04-26 14:50] LABS: Ceruloplasmin 31 mg/dL (18-53)
[2019-04-28 07:56] LABS: ANA Screen, IFA NEGATIVE (NEGATIVE)
[2019-04-28 20:33] LABS: RPR Screen Nonreactive (Nonreactive)
== END ==
PROVIDERS: PCP Family Medicine; Referring Provider Family Medicine; Visit Provider Family Medicine
DX: E04.1 Nontoxic single thyroid nodule (principal); G24.3 Spasmodic torticollis
CPT/HCPCS: 36415; 80053; 82390; 82525; 84439; 84443; 84481; 85025; 85651; 86038; 86592

== ENCOUNTER → 2020-02-03 10:35 | Outpatient (CLI) | payer MEDICARE, OTHER, SELFPAY ==
[2018-10-01 15:20] VITALS: BMI 25.0
--- NOTE | 2020-02-03 | DI.MG.S_ITS ---
BILATERAL DIGITAL SCREENING MAMMOGRAM 3D/2D WITH CAD: 02/03/2020 CLINICAL: Routine screening. Family history of breast cancer. Comparison is made to exams dated: 01/30/2019 mammogram, 12/25/2017 mammogram, 11/01/2016 mammogram, 10/27/2015 mammogram, 10/09/2014 mammogram, and 09/30/2013 mammogram - [facility]. The tissue of both breasts is heterogeneously dense. This may lower the sensitivity of mammography. Current study was also evaluated with a Computer Aided Detection (CAD) system. No significant masses, calcifications, or other findings are seen in either breast. There has been no significant interval change. IMPRESSION: NEGATIVE There is no mammographic evidence of malignancy. A 1 year screening mammogram is recommended. This exam was interpreted at Station ID: [id number]. NOTE: For mammograms, a report in lay terms will be sent to the patient. Approximately 15% of breast malignancies will not be visualized mammographically. In the management of a palpable breast mass, a negative mammogram must not discourage biopsy of a clinically suspicious lesion. Electronically Signed By: Brody zarate/vernon:02/03/2020 13:20:17 letter sent: Normal Exam ACR BI-RADS Category 1: Negative 3341F
== END ==
PROVIDERS: PCP Family Medicine; Referring Provider Family Medicine; Visit Provider Family Medicine
DX: Z12.31 Encounter for screening mammogram for malignant neoplasm of breast (principal)
CPT/HCPCS: 77063; 77067

== ENCOUNTER → 2020-05-21 10:38 | Outpatient (CLI) | payer MEDICARE, OTHER, SELFPAY ==
[2018-10-01 15:20] VITALS: BMI 25.0
[2020-05-21] MEDS: COVID-19 VACC, Ad26(JANSSEN)/PF 0.5 ML IM (10:49)
== END ==
PROVIDERS: PCP Family Medicine; Visit Provider Internal Medicine
DX: Z23 Encounter for immunization (principal)
CPT/HCPCS: 0031A; 91303

== ENCOUNTER → 2020-09-11 08:56 | Outpatient (CLI) | payer MEDICARE, OTHER, SELFPAY ==
[2018-10-01 15:20] VITALS: BMI 25.0
[2020-09-11 10:25] LABS: BUN Creatinine Ratio 17.6 (6-22); Blood Urea Nitrogen 13 mg/dL (7-17); Calcium 9.7 mg/dL (8.4-10.2); Carbon Dioxide 26 mmol/L (22-32); Chloride 106 mmol/L (98-107); Estimated Glomerular Filt Rate > 60.0 mL/min (>60); Glucose 96 mg/dL (80-110); HEMOLYSIS 45 (0-50); Potassium 4.7 mmol/L (3.4-5.1); Sodium 137 mmol/L (137-145)
[2020-09-11 10:46] LABS: Creatinine Urine Random 15.9 mg/dL
[2020-09-11 10:53] LABS: Microalbumin Urine Random < 0.6 mg/dL (0-1.6)
== END ==
PROVIDERS: PCP Family Medicine; Referring Provider Family Medicine; Visit Provider Family Medicine
DX: I10 Essential (primary) hypertension (principal)
CPT/HCPCS: 36415; 80048; 82043; 82570

== ENCOUNTER → 2021-02-08 11:26 | Outpatient (CLI) | payer MEDICARE, OTHER, SELFPAY ==
[2018-10-01 15:20] VITALS: BMI 25.0
--- NOTE | 2021-02-08 11:29 | DI.MG.S_ITS ---
BILATERAL DIGITAL SCREENING MAMMOGRAM 3D/2D WITH CAD: 02/08/2021 CLINICAL: Routine screening. Family history of breast cancer. Comparison is made to exams dated: 02/03/2020 mammogram, 01/30/2019 mammogram, and 12/25/2017 mammogram - [facility]. The tissue of both breasts is heterogeneously dense. This may lower the sensitivity of mammography. Current study was also evaluated with a Computer Aided Detection (CAD) system. No significant masses, calcifications, or other findings are seen in either breast. There has been no significant interval change. IMPRESSION: NEGATIVE There is no mammographic evidence of malignancy. A 1 year screening mammogram is recommended. This exam was interpreted at Station ID: [id number]. NOTE: For mammograms, a report in lay terms will be sent to the patient. Approximately 15% of breast malignancies will not be visualized mammographically. In the management of a palpable breast mass, a negative mammogram must not discourage biopsy of a clinically suspicious lesion. Electronically Signed By: Jaleel mendoza/vernon:02/08/2021 12:27:35 letter sent: Normal Exam ACR BI-RADS Category 1: Negative 3341F
== END ==
PROVIDERS: PCP Family Medicine; Referring Provider Family Medicine; Visit Provider Family Medicine
DX: Z12.31 Encounter for screening mammogram for malignant neoplasm of breast (principal); Z80.3 Family history of malignant neoplasm of breast
CPT/HCPCS: 77063; 77067

== ENCOUNTER → 2021-05-26 14:01 | Outpatient (CLI) | payer MEDICARE, OTHER, SELFPAY ==
[2018-10-01 15:20] VITALS: BMI 25.0
[2021-05-26 15:39] LABS: Add Manual Diff / Slide Review NO; Basophils Absolute Auto 100 /uL (0-100); Basophils Percent Auto 1.8 % (0-2); Eosinophils Absolute Auto 100 /uL (0-450); Eosinophils Percent Auto 1.5 % (2-4); Hematocrit 44.1 % (36-46); Hemoglobin 14.8 g/dL (12.0-16.0); Lymphocytes Absolute Auto 1800 /uL (1100-4500); Lymphocytes Percent Auto 31.7 % (25-40); Mean Corpuscular HGB Conc 33.6 % (30-36); Mean Corpuscular Hemoglobin 30.4 PG (26-34); Mean Corpuscular Volume 90.6 fL (80-100); Monocytes Absolute Auto 500 /uL (0-900); Monocytes Percent Auto 8.3 % (3-14); Neutrophils Absolute Auto 3300 /uL (1500-7000); Neutrophils Percent Auto 56.7 % (50-75); Platelet Count 232 X10^3/uL (150-400); Red Blood Cell Count 4.87 X10^6/uL (4.0-5.2); White Blood Cell Count 5.8 X10^3/uL (4.5-11.0)
[2021-05-26 15:51] LABS: Alanine Aminotransferase 17 IU/L (<35); Albumin 4.4 g/dL (3.5-5.0); Albumin Globulin Ratio 1.6 (1.0-2.8); Alkaline Phosphatase 76 U/L (38-126); Aspartate Aminotransferase 26 IU/L (14-36); BUN Creatinine Ratio 20.9 (6-22); Bilirubin Total 0.6 mg/dL (0.2-1.3); Blood Urea Nitrogen 19 mg/dL (7-17); Calcium 9.2 mg/dL (8.4-10.2); Carbon Dioxide 29 mmol/L (22-32); Chloride 105 mmol/L (98-107); Estimated Glomerular Filt Rate > 60.0 mL/min (>60); Globulin 2.8 g/dL (1.7-4.1); Glucose 104 mg/dL (80-110); HEMOLYSIS 30 (0-50); Magnesium 2.2 mg/dL (1.6-2.3); Potassium 4.2 mmol/L (3.4-5.1); Sodium 139 mmol/L (137-145); Total Protein 7.2 g/dL (6.3-8.2)
[2021-05-26 16:53] LABS: Thyroid Stimulating Hormone 0.745 uIU/mL (0.47-4.68)
== END ==
PROVIDERS: PCP Family Medicine; Referring Provider Nurse Practitioner Family; Visit Provider Nurse Practitioner Family
DX: I25.5 Ischemic cardiomyopathy (principal); Z45.02 Encounter for adjustment and management of automatic implantable cardiac defibrillator
CPT/HCPCS: 36415; 80053; 83735; 84443; 85025

== ENCOUNTER → 2022-02-18 11:03 | Outpatient (CLI) | payer MEDICARE, OTHER, SELFPAY ==
[2018-10-01 15:20] VITALS: BMI 25.0
--- NOTE | 2022-02-18 | DI.MG.S_ITS ---
BILATERAL DIGITAL SCREENING MAMMOGRAM 3D/2D WITH CAD: 02/18/2022 CLINICAL: Routine screening. Family history of breast cancer. Comparison is made to exams dated: 02/08/2021 mammogram, 02/03/2020 mammogram, and 01/30/2019 mammogram - [facility]. Both breasts are heterogeneously dense, which may obscure small masses (category c / 51-75% glandular tissue). Current study was also evaluated with a Computer Aided Detection (CAD) system. No significant masses, calcifications, or other findings are seen in either breast. There has been no significant interval change. IMPRESSION: NEGATIVE There is no mammographic evidence of malignancy. A 1 year screening mammogram is recommended. This exam was interpreted at Station ID: [id number]. NOTE: For mammograms, a report in lay terms will be sent to the patient. Approximately 15% of breast malignancies will not be visualized mammographically. In the management of a palpable breast mass, a negative mammogram must not discourage biopsy of a clinically suspicious lesion. Electronically Signed By: Kelly benavidez/vernon:02/18/2022 13:48:09 letter sent: Normal Exam ACR BI-RADS Category 1: Negative 3341F
== END ==
PROVIDERS: PCP Family Medicine; Referring Provider Family Medicine; Visit Provider Family Medicine
DX: Z12.31 Encounter for screening mammogram for malignant neoplasm of breast (principal); Z80.3 Family history of malignant neoplasm of breast
CPT/HCPCS: 77063; 77067

== ENCOUNTER → 2023-04-03 08:58 | Outpatient (CLI) | payer MEDICARE, OTHER, SELFPAY ==
[2018-10-01 15:20] VITALS: BMI 25.0
--- NOTE | 2023-04-03 08:59 | DI.MG.S_ITS ---
BILATERAL DIGITAL SCREENING MAMMOGRAM 3D/2D WITH CAD: 04/03/2023 CLINICAL: Routine screening. Family history of breast cancer. Comparison is made to exams dated: 02/18/2022 mammogram, 02/08/2021 mammogram, and 02/03/2020 mammogram - [facility]. Both breasts are heterogeneously dense, which may obscure small masses (category c / 51-75% glandular tissue). Current study was also evaluated with a Computer Aided Detection (CAD) system. No significant masses, calcifications, or other findings are seen in either breast. There has been no significant interval change. IMPRESSION: NEGATIVE There is no mammographic evidence of malignancy. A 1 year screening mammogram is recommended. Based on the Tyrer Cuzick model (a risk assessment model) the patient's lifetime risk is 17.1% and her 10 year risk is 13.0%. According to the ACR, ACS, and NCCN guidelines, an annual breast MRI exam along with mammogram is recommended if the patient's lifetime risk is 20% or greater. This exam was interpreted at Station ID: [id number]. NOTE: For mammograms, a report in lay terms will be sent to the patient. Approximately 15% of breast malignancies will not be visualized mammographically. In the management of a palpable breast mass, a negative mammogram must not discourage biopsy of a clinically suspicious lesion. Electronically Signed By: Brody zarate/vernon:04/03/2023 18:52:32 letter sent: Normal Exam ACR BI-RADS Category 1: Negative 3341F
== END ==
LOC: MAMMO 08:59
PROVIDERS: PCP Family Medicine; Referring Provider Family Medicine; Visit Provider Family Medicine
DX: Z12.31 Encounter for screening mammogram for malignant neoplasm of breast (principal); R92.333 Mammographic heterogeneous density, bilateral breasts; Z80.3 Family history of malignant neoplasm of breast
CPT/HCPCS: 77063; 77067

== ENCOUNTER 2023-08-10 05:54 | Observation (INO) | payer MEDICARE, OTHER, SELFPAY ==
[2018-10-01 15:20] VITALS: BMI 25.0
[2023-08-10] VITALS (16 sets, daily range): BP systolic 89–130; BP diastolic 50–69; PULSE 59–68; RESP 14–18; TEMP 36.6–37.6; O2SAT 95–98; BMI 24.2
--- NOTE | 2023-08-10 06:02 | DI.CT.S_ITS ---
PROCEDURE: CT ABDOMEN PELVIS W CON INDICATIONS: RLQ ABD PAIN X 3 DAYS TECHNIQUE: After the administration of intravenous contrast, axial sections acquired from the lung bases to the pubic symphysis. Coronal and sagittal reformats were performed. For radiation dose reduction, the following was used: automated exposure control, adjustment of mA and/or kV according to patient size. COMPARISON: None. FINDINGS: Image quality: Diagnostic. Lower Chest: Cardiomegaly. ABDOMEN: Liver: Flash filling lesion with peripheral vascular shunt in segment 5/6 the liver measuring approximately 1.1 centimeter (series 2, image 19). Gallbladder: No radiopaque gallstones or wall thickening. Biliary ducts: No biliary dilation. Pancreas: No ductal dilation. Spleen: Size is within normal limits. Adrenal Glands: Bilateral adrenal nodules, measuring 3.2 centimeters on left and 1.7 centimeters on the right. Kidneys and Ureters: No hydronephrosis. No solid mass. No complex renal cystic lesion which requires follow up. Stomach and Bowel: The appendix is distended, with diffuse wall thickening and periappendiceal fat stranding. Peritoneum: No abnormal intraperitoneal fluid. No free air. Ventral Wall: No significant ventral hernia. Abdominal Nodes: No retroperitoneal or mesenteric adenopathy by size criteria. Vessels: Aorta and inferior vena cava are normal in size. PELVIS: Pelvic Organs: Unremarkable. Bladder: No bladder wall thickening, accounting for underdistention. Pelvic Nodes: No enlarged lymph nodes. Miscellaneous: No inguinal hernias are seen. Bones: No aggressive osseous abnormality. IMPRESSION: Uncomplicated acute appendicitis. Indeterminate bilateral adrenal nodules. Indeterminate liver lesion. Both findings should be characterized with MRI in the setting of cervical and skin cancer (hepatic mass protocol). Agree with preliminary report. Dictated by: Angelo Garnica M.D. on 08/10/2023 at 7:46 Approved by: Angelo Garnica M.D. on 08/10/2023 at 7:49
--- NOTE | 2023-08-10 06:02 | ED.ABDPAIN ---
HPI - Abdominal Pain <Tammy Randhawa MD - Last Filed: 08/11/23 01:20> General Chief Complaint: Abdominal Pain Stated Complaint: abd pain x1 week Time Seen by Provider: 08/10/23 05:55 History of Present Illness HPI narrative: 73-year-old female with history of CAD status post stents, history of AICD placement presents by EMS from home for 3 days of lower abdominal pain with nausea and decreased p.o. intake. Pain is intermittent, comes and goes, patient can not identify what makes the pain come or go. Patient states that yesterday the pain was 8/10, today it was 5 to 6/10. She was concerned that it may be her appendix and decided to call 911 for evaluation. Patient has been on several weeks of doxycycline for ocular rosacea. She stopped this medication 3 days ago when her symptoms started believing it was the cause of her abdominal pain. Related Data Home Medications Medication Instructions Recorded Confirmed ASPIRIN (Aspirin Low Dose) 81 mg PO Q DAY ##0 06/27/09 08/10/23 furosemide 20 mg tablet 10 mg PO DAILY 10/11/17 08/10/23 cholecalciferol (vitamin D3) 50 2,000 unit PO DAILY 10/30/18 08/10/23 mcg (2,000 unit) capsule carvedilol 25 mg tablet (Coreg) 25 mg PO BID 05/26/20 08/10/23 doxycycline hyclate 100 mg capsule 100 mg PO DAILY 08/10/23 08/10/23 Previous Rx's Medication Instructions Recorded enalapril maleate 20 mg tablet 10 mg (1/2 x 20 mg) PO BID #180 03/27/20 tabs omeprazole 20 mg capsule,delayed 20 mg PO .COMPLEX #60 caps 03/16/22 release Allergies Allergy/AdvReac Type Severity Reaction Status Date / Time [id number] Reductase Allergy Mild high Verified 12/28/22 09:31 Inhibitor dose-muscle [[id number] REDUCTASE pain,hair INHIBITOR] loss Review of Systems <Tammy Randhawa MD - Last Filed: 08/11/23 01:20> Review of Systems Narrative: See HPI Patient History <Tammy Randhawa MD - Last Filed: 08/11/23 01:20> Medical History Systolic heart failure Ischemic cardiomyopathy Finger fracture (~1999) Shoulder pain (2008) Shingles Chicken pox Measles Abnormal Pap smear of cervix (1997) Colon polyps (2008) Goiter Cervical cancer (1997) Skin cancer (1994) History of placement of stent in LAD coronary artery (2009) Pacemaker Thyroid nodule (2013) Hyperlipidemia (07/23/15) Essential hypertension (07/23/15) Coronary artery disease involving [place] coronary artery of [place] heart without angina pectoris (07/23/15) Surgical History History of colonoscopy (2013) Anesthesia Status post hysterectomy (1997) History of tonsillectomy Family History Brother Age: 75 Hypertension High cholesterol Pulmonary disease Father Coronary artery disease involving [place] coronary artery of [place] heart without angina pectoris Cancer Heart disease Hypertension High cholesterol Stroke Grandfather Cancer Grandmother Cancer Mother Malignant neoplasm of female breast, unspecified laterality, unspecified site of breast Liver cancer Lung cancer Grandfather Heart disease Social History marital status: household members: spouse pets and animals: Yes education level: college other: gardening,walking seatbelt use: always water heater temp set < 120 deg: Yes working smoke detector in home: Yes fire extinguisher in home: Yes carbon monox detector in home: No firearms in home: No do you feel safe at home: Yes Smoking Status: Former smoker second hand exposure: No alcohol intake: current substance use type: does not use during the past year weight has: remained stable daily servings fruits/ve-4 caffeine: Yes Type(s) of exercise: walking frequency: 5-6 times per week duration: 30-45 minutes/day Smoking Status: Former smoker Exam <Tammy Randhawa MD - Last Filed: 08/11/23 01:20> Narrative Exam Narrative: Const: Awake, alert, no acute distress, nontoxic appearing Cardiac: regular rate, regular rhythm RESP: unlabored, clear bilaterally, no wheezing GI: Soft, tenderness to deep palpation bilateral lower quadrants, no rebound or guarding Skin: Warm, Dry, intact, no rashes Neuro: AO x3, CN II-XII grossly intact, moves all extremities Initial Vital Signs Initial Vital Signs: Vital Signs Pulse Rate 61 08/10/23 05:58 Respiratory Rate 14 08/10/23 05:58 Blood Pressure 122/57 L 08/10/23 05:58 Pulse Oximetry 98 08/10/23 05:58 Oxygen Delivery Method Room Air 08/10/23 05:58 <Tammy Pope DO - Last Filed: 08/10/23 09:22> Initial Vital Signs Initial Vital Signs: Vital Signs Pulse Rate 61 08/10/23 05:58 Respiratory Rate 14 08/10/23 05:58 Blood Pressure 122/57 L 08/10/23 05:58 Pulse Oximetry 98 08/10/23 05:58 Oxygen Delivery Method Room Air 08/10/23 05:58 Course <Tammy Randhawa MD - Last Filed: 08/11/23 01:20> Orders Ordered: ED Orders 08/11/23 05:00 CBC Auto Diff [Complete Blood Count AUTO DIFF] Stat Acetaminophen (Acetaminophen 325 Mg Tablet) 650 mg PO Q6H [facility] Last Admin: 08/10/23 19:55 Dose: 650 mg Documented By: Admin: 08/10/23 13:19 Dose: 650 mg Documented By: MS(2) Admin: 08/10/23 10:28 Dose: Not Given Documented By: DELMY Aspirin (Aspirin Ec 81 Mg Tablet) 81 mg PO DAILY [facility] Carvedilol (Carvedilol 12.5 Mg Tablet) 25 mg PO BID [facility] Last Admin: 08/10/23 19:56 Dose: Not Given Documented By: MS Furosemide (Furosemide 20 Mg Tablet) 10 mg PO DAILY [facility] Dextrose/Sodium Chloride (Dextrose 5%-0.45% Ns) 1,000 mls @ 100 mls/hr IV CONT [facility] Last Admin: 08/10/23 18:32 Dose: 100 mls/hr Documented By: Infusion: 08/10/23 18:32 Dose: Infused Documented By: Admin: 08/10/23 09:04 Dose: 100 mls/hr Documented By: DELMY Piperacillin Sod/Tazobactam (Sod 3.375 gm/ Sodium Chloride) 100 mls @ 25 mls/hr IV Q8H [facility] Last Infusion: 08/10/23 22:43 Dose: Infused Documented By: Admin: 08/10/23 18:29 Dose: 25 mls/hr Documented By: DELMY Ibuprofen (Ibuprofen 400 Mg Tablet) 400 mg PO Q4H [facility] Last Admin: 08/10/23 23:57 Dose: 400 mg Documented By: Admin: 08/10/23 19:56 Dose: 400 mg Documented By: Admin: 08/10/23 17:19 Dose: 400 mg Documented By: Admin: 08/10/23 11:53 Dose: 400 mg Documented By: Admin: 08/10/23 10:28 Dose: Not Given Documented By: DELMY Lisinopril (Lisinopril 20 Mg Tablet) 20 mg PO DAILY [facility] Naloxone HCl (Naloxone 0.4 Mg/Ml Vial) 0.2 mg IV Q2MIN PRN PRN Reason: Opiate Reversal Oxycodone HCl (Oxycodone Ir 5 Mg Tablet) 5 mg PO Q3H PRN PRN Reason: Pain, Moderate (4-6) Last Admin: 08/10/23 11:43 Dose: 5 mg Documented By: MS(2) Pantoprazole Sodium (Pantoprazole Dr 20 Mg Tablet) 20 mg PO 0600 [facility] Vitamin D (Cholecalciferol (Vitamin D3) 1,000 Unit Tablet) 2,000 unit PO DAILY [facility] Discontinued Medications Sodium Chloride (Normal Saline 0.9%) 1,000 mls @ 1,000 mls/hr IV BOLUS ONE Stop: 08/10/23 07:00 Last Infusion: 08/10/23 08:04 Dose: Infused Documented By: Admin: 08/10/23 06:17 Dose: 1,000 mls/hr Documented By: Piperacillin Sod/Tazobactam (Sod 4.5 gm/ Sodium Chloride) 100 mls @ 200 mls/hr IV NOW ONE Stop: 08/10/23 07:28 Last Infusion: 08/10/23 08:41 Dose: Infused Documented By: Admin: 08/10/23 07:55 Dose: 200 mls/hr Documented By: OG Sodium Chloride (Normal Saline 0.9%) 1,000 mls @ 125 mls/hr IV CONT [facility] Last Admin: 08/10/23 09:37 Dose: Not Given Documented By: DELMY Influenza Virus Vaccine (Influenza Hd Vaccine 0.7 Ml Syringe) 0.7 ml IM .ONCE ONE Stop: 08/10/23 09:25 Last Admin: 08/10/23 12:54 Dose: Not Given Documented By: DELMY Morphine Sulfate (Morphine 4 Mg/Ml Inj) 4 mg IV NOW ONE Stop: 08/10/23 06:02 Last Admin: 08/10/23 06:18 Dose: 4 mg Documented By: JR Ondansetron HCl (Ondansetron 4 Mg/2 Ml Inj) 4 mg IV NOW ONE Stop: 08/10/23 06:02 Last Admin: 08/10/23 06:18 Dose: 4 mg Documented By: Vital Signs Vital signs: Vital Signs - 8 hr 08/10/23 05:58 08/10/23 05:58 08/10/23 05:59 Temperature 98.7 F Pulse Rate 61 65 Respiratory Rate 14 16 Blood Pressure 122/57 L 122/57 L Pulse Oximetry 98 97 Oxygen Delivery Method Room Air Room Air 08/10/23 06:00 08/10/23 06:21 08/10/23 06:21 Temperature Pulse Rate 60 60 Respiratory Rate Blood Pressure 109/58 L Pulse Oximetry 96 96 Oxygen Delivery Method 08/10/23 06:30 08/10/23 06:30 08/10/23 07:01 Temperature Pulse Rate 60 60 Respiratory Rate 16 Blood Pressure 115/57 L Pulse Oximetry 95 97 Oxygen Delivery Method Room Air 08/10/23 07:30 08/10/23 07:57 08/10/23 07:57 Temperature Pulse Rate 60 60 Respiratory Rate 14 Blood Pressure 122/67 Pulse Oximetry 96 97 Oxygen Delivery Method Room Air 08/10/23 08:00 08/10/23 08:00 Temperature Pulse Rate 60 Respiratory Rate 14 Blood Pressure 130/69 Pulse Oximetry 97 Oxygen Delivery Method <Tammy Pope, - Last Filed: 08/10/23 09:22> Orders Ordered: ED Orders 08/11/23 05:00 CBC Auto Diff [Complete Blood Count AUTO DIFF] Stat Acetaminophen (Acetaminophen 325 Mg Tablet) 650 mg PO Q6H [facility] Last Admin: 08/10/23 19:55 Dose: 650 mg Documented By: Admin: 08/10/23 13:19 Dose: 650 mg Documented By: (2) Admin: 08/10/23 10:28 Dose: Not Given Documented By: DELMY Aspirin (Aspirin Ec 81 Mg Tablet) 81 mg PO DAILY [facility] Carvedilol (Carvedilol 12.5 Mg Tablet) 25 mg PO BID [facility] Last Admin: 08/10/23 19:56 Dose: Not Given Documented By: MS Furosemide (Furosemide 20 Mg Tablet) 10 mg PO DAILY [facility] Dextrose/Sodium Chloride (Dextrose 5%-0.45% Ns) 1,000 mls @ 100 mls/hr IV CONT [facility] Last Admin: 08/10/23 18:32 Dose: 100 mls/hr Documented By: Infusion: 08/10/23 18:32 Dose: Infused Documented By: Admin: 08/10/23 09:04 Dose: 100 mls/hr Documented By: DELMY Piperacillin Sod/Tazobactam (Sod 3.375 gm/ Sodium Chloride) 100 mls @ 25 mls/hr IV Q8H [facility] Last Infusion: 08/10/23 22:43 Dose: Infused Documented By: Admin: 08/10/23 18:29 Dose: 25 mls/hr Documented By: DELMY Ibuprofen (Ibuprofen 400 Mg Tablet) 400 mg PO Q4H [facility] Last Admin: 08/10/23 23:57 Dose: 400 mg Documented By: Admin: 08/10/23 19:56 Dose: 400 mg Documented By: Admin: 08/10/23 17:19 Dose: 400 mg Documented By: Admin: 08/10/23 11:53 Dose: 400 mg Documented By: Admin: 08/10/23 10:28 Dose: Not Given Documented By: DELMY Lisinopril (Lisinopril 20 Mg Tablet) 20 mg PO DAILY [facility] Naloxone HCl (Naloxone 0.4 Mg/Ml Vial) 0.2 mg IV Q2MIN PRN PRN Reason: Opiate Reversal Oxycodone HCl (Oxycodone Ir 5 Mg Tablet) 5 mg PO Q3H PRN PRN Reason: Pain, Moderate (4-6) Last Admin: 08/10/23 11:43 Dose: 5 mg Documented By: MS(2) Pantoprazole Sodium (Pantoprazole Dr 20 Mg Tablet) 20 mg PO 0600 [facility] Vitamin D (Cholecalciferol (Vitamin D3) 1,000 Unit Tablet) 2,000 unit PO DAILY [facility] Discontinued Medications Sodium Chloride (Normal Saline 0.9%) 1,000 mls @ 1,000 mls/hr IV BOLUS ONE Stop: 08/10/23 07:00 Last Infusion: 08/10/23 08:04 Dose: Infused Documented By: Admin: 08/10/23 06:17 Dose: 1,000 mls/hr Documented By: Piperacillin Sod/Tazobactam (Sod 4.5 gm/ Sodium Chloride) 100 mls @ 200 mls/hr IV NOW ONE Stop: 08/10/23 07:28 Last Infusion: 08/10/23 08:41 Dose: Infused Documented By: Admin: 08/10/23 07:55 Dose: 200 mls/hr Documented By: OG Sodium Chloride (Normal Saline 0.9%) 1,000 mls @ 125 mls/hr IV CONT [facility] Last Admin: 08/10/23 09:37 Dose: Not Given Documented By: DELMY Influenza Virus Vaccine (Influenza Hd Vaccine 0.7 Ml Syringe) 0.7 ml IM .ONCE ONE Stop: 08/10/23 09:25 Last Admin: 08/10/23 12:54 Dose: Not Given Documented By: DELMY Morphine Sulfate (Morphine 4 Mg/Ml Inj) 4 mg IV NOW ONE Stop: 08/10/23 06:02 Last Admin: 08/10/23 06:18 Dose: 4 mg Documented By: Ondansetron HCl (Ondansetron 4 Mg/2 Ml Inj) 4 mg IV NOW ONE Stop: 08/10/23 06:02 Last Admin: 08/10/23 06:18 Dose: 4 mg Documented By: Vital Signs Vital signs: Vital Signs - 8 hr 08/10/23 05:58 08/10/23 05:58 08/10/23 05:59 Temperature 98.7 F Pulse Rate 61 65 Respiratory Rate 14 16 Blood Pressure 122/57 L 122/57 L Pulse Oximetry 98 97 Oxygen Delivery Method Room Air Room Air 08/10/23 06:00 08/10/23 06:21 08/10/23 06:21 Temperature Pulse Rate 60 60 Respiratory Rate Blood Pressure 109/58 L Pulse Oximetry 96 96 Oxygen Delivery Method 08/10/23 06:30 08/10/23 06:30 08/10/23 07:01 Temperature Pulse Rate 60 60 Respiratory Rate 16 Blood Pressure 115/57 L Pulse Oximetry 95 97 Oxygen Delivery Method Room Air 08/10/23 07:30 08/10/23 07:57 08/10/23 07:57 Temperature Pulse Rate 60 60 Respiratory Rate 14 Blood Pressure 122/67 Pulse Oximetry 96 97 Oxygen Delivery Method Room Air 08/10/23 08:00 08/10/23 08:00 Temperature Pulse Rate 60 Respiratory Rate 14 Blood Pressure 130/69 Pulse Oximetry 97 Oxygen Delivery Method MDM - Abdominal Pain <Tammy Randhawa MD - Last Filed: 08/11/23 01:20> Differential Diagnosis Differential diagnosis: Likely abdominal pain, acute appendicitis and calculus of kidney Lab Data 08/10/23 06:05 08/10/23 06:05 Labs: Lab Results 08/10/23 Range/Units 06:05 WBC 12.7 H (4.5-11.0) X10^3/uL RBC 4.59 (4.0-5.2) X10^6/uL Hgb 14.1 (12.0-16.0) g/dL Hct 41.6 (36-46) % MCV 90.6 (80-100) fL MCH 30.6 (26-34) PG MCHC 33.8 (30-36) % RDW 13.7 (11.6-14.8) % Plt Count 153 (150-400) X10^3/uL Neut % (Auto) 83.0 H (50-75) % Lymph % (Auto) 6.9 L (25-40) % [place] % (Auto) 9.4 (3-14) % Eos % (Auto) 0.1 L (2-4) % Baso % (Auto) 0.6 (0-2) % Neut # (Auto) 05456 H (3080-3666) /uL Lymph # (Auto) 900 L (8472-3948) /uL [place] # (Auto) 1200 H (0-900) /uL Eos # (Auto) 0 (0-450) /uL Baso # (Auto) 100 (0-100) /uL Sodium 136 L (137-145) mmol/L Potassium 4.0 (3.4-5.1) mmol/L Chloride 106 (98-107) mmol/L Carbon Dioxide 26 (22-32) mmol/L BUN 12 (7-17) mg/dL Creatinine 0.71 (0.52-1.04) mg/dL Estimated GFR > 60 (>60) mL/min BUN/Creatinine Ratio 16.9 (6-22) Glucose 123 H (80-110) mg/dL Lactate 1.2 (0.7-2.1) mmol/L Calcium 9.3 (8.4-10.2) mg/dL Total Bilirubin 1.3 (0.2-1.3) mg/dL AST 37 H (14-36) IU/L ALT 24 (<35) IU/L Alkaline Phosphatase 57 (38-126) U/L Total Protein 6.8 (6.3-8.2) g/dL Albumin 3.9 (3.5-5.0) g/dL Globulin 2.9 (1.7-4.1) g/dL Albumin/Globulin Ratio 1.3 (1.0-2.8) Lipase 44 (23-300) U/L MDM Narrative Medical decision making narrative: Three days of lower abdominal pain. Abdomen is soft, no peritoneal signs. Patient states she was concerned about her appendix. No previous history of abdominal surgeries. Laboratory work, CT imaging, pain and nausea medications ordered. IV fluids ordered for hydration since patient has reported decreased p.o. intake. Laboratory work is reviewed, WBC count 12.7, hemoglobin 14.1, platelets 153, sodium 136, potassium 4.0, creatinine 0.71, normal liver enzymes. Lactic acid 1.2. CT of the abdomen and pelvis is pending. Care of patient is signed out to Dr. Pope at 0700 <Tammy Pope, - Last Filed: 08/10/23 09:22> Lab Data Labs: Lab Results 08/10/23 Range/Units 06:05 WBC 12.7 H (4.5-11.0) X10^3/uL RBC 4.59 (4.0-5.2) X10^6/uL Hgb 14.1 (12.0-16.0) g/dL Hct 41.6 (36-46) % MCV 90.6 (80-100) fL MCH 30.6 (26-34) PG MCHC 33.8 (30-36) % RDW 13.7 (11.6-14.8) % Plt Count 153 (150-400) X10^3/uL Neut % (Auto) 83.0 H (50-75) % Lymph % (Auto) 6.9 L (25-40) % [place] % (Auto) 9.4 (3-14) % Eos % (Auto) 0.1 L (2-4) % Baso % (Auto) 0.6 (0-2) % Neut # (Auto) 26716 H (2612-8310) /uL Lymph # (Auto) 900 L (0453-0261) /uL [place] # (Auto) 1200 H (0-900) /uL Eos # (Auto) 0 (0-450) /uL Baso # (Auto) 100 (0-100) /uL Sodium 136 L (137-145) mmol/L Potassium 4.0 (3.4-5.1) mmol/L Chloride 106 (98-107) mmol/L Carbon Dioxide 26 (22-32) mmol/L BUN 12 (7-17) mg/dL Creatinine 0.71 (0.52-1.04) mg/dL Estimated GFR > 60 (>60) mL/min BUN/Creatinine Ratio 16.9 (6-22) Glucose 123 H (80-110) mg/dL Lactate 1.2 (0.7-2.1) mmol/L Calcium 9.3 (8.4-10.2) mg/dL Total Bilirubin 1.3 (0.2-1.3) mg/dL AST 37 H (14-36) IU/L ALT 24 (<35) IU/L Alkaline Phosphatase 57 (38-126) U/L Total Protein 6.8 (6.3-8.2) g/dL Albumin 3.9 (3.5-5.0) g/dL Globulin 2.9 (1.7-4.1) g/dL Albumin/Globulin Ratio 1.3 (1.0-2.8) Lipase 44 (23-300) U/L [facility] Narrative Medical decision making narrative: Three days of lower abdominal pain. Abdomen is soft, no peritoneal signs. Patient states she was concerned about her appendix. No previous history of abdominal surgeries. Laboratory work, CT imaging, pain and nausea medications ordered. IV fluids ordered for hydration since patient has reported decreased p.o. intake. Laboratory work is reviewed, WBC count 12.7, hemoglobin 14.1, platelets 153, sodium 136, potassium 4.0, creatinine 0.71, normal liver enzymes. Lactic acid 1.2. CT of the abdomen and pelvis is pending. Care of patient is signed out to Dr. Pope at 0700 73-year-old female history of hypertension dyslipidemia coronary artery disease, pacemaker and defibrillator seen with most recent EF of 50% and evaluated by myself, patient's labs were reviewed she has a mild leukocytosis otherwise appropriate labs, CT shows acute uncomplicated appendicitis measuring up to 14 mm [id number] fat stranding in parietal peritoneal thickening. There is an indeterminate focal ill-defined sclerotic change posterior aspect right iliac bone recommended follow-up with nonemergent adrenal protocol CT/MRI. Patient states she is doing well with pain. Patient updated of findings covered with a dose of IV antibiotic. Spoke with general surgery Dr. Beckman who will see the patient, we will go ahead and cover with a dose of IV Zosyn, NPO but she may discuss oral antibiotics with the patient. Discharge Plan Departure Patient Disposition: Admitted as Observation Clinical Impression: Acute appendicitis Admit Date/Time: 08/10/23 08:03 Admit Provider: Henna Beckman
[2023-08-10] MEDS: SODIUM CHLORIDE 0.9% 1,000 ML 1000 ML IV (06:17)
[2023-08-10 06:18] LABS: Add Manual Diff / Slide Review NO; Basophils Absolute Auto 100 /uL (0-100); Basophils Percent Auto 0.6 % (0-2); Eosinophils Absolute Auto 0 /uL (0-450); Eosinophils Percent Auto 0.1 % (2-4); Hematocrit 41.6 % (36-46); Hemoglobin 14.1 g/dL (12.0-16.0); Lymphocytes Absolute Auto 900 /uL (1100-4500); Lymphocytes Percent Auto 6.9 % (25-40); Mean Corpuscular HGB Conc 33.8 % (30-36); Mean Corpuscular Hemoglobin 30.6 PG (26-34); Mean Corpuscular Volume 90.6 fL (80-100); Monocytes Absolute Auto 1200 /uL (0-900); Monocytes Percent Auto 9.4 % (3-14); Neutrophils Absolute Auto 10500 /uL (1500-7000); Platelet Count 153 X10^3/uL (150-400); Red Blood Cell Count 4.59 X10^6/uL (4.0-5.2); Red Cell Distribution Width 13.7 % (11.6-14.8); White Blood Cell Count 12.7 X10^3/uL (4.5-11.0)
[2023-08-10] MEDS: MORPHINE 4 MG/ML INJ IV (06:18)
[2023-08-10] MEDS: ONDANSETRON 4 MG/2 ML INJ IV (06:18)
[2023-08-10 06:39] LABS: Alanine Aminotransferase 24 IU/L (<35); Albumin 3.9 g/dL (3.5-5.0); Albumin Globulin Ratio 1.3 (1.0-2.8); BUN Creatinine Ratio 16.9 (6-22); Bilirubin Total 1.3 mg/dL (0.2-1.3); Blood Urea Nitrogen 12 mg/dL (7-17); Calcium 9.3 mg/dL (8.4-10.2); Carbon Dioxide 26 mmol/L (22-32); Chloride 106 mmol/L (98-107); Estimated Glomerular Filt Rate > 60 mL/min (>60); Globulin 2.9 g/dL (1.7-4.1); Glucose 123 mg/dL (80-110); Lipase 44 U/L (23-300); Sodium 136 mmol/L (137-145); Total Protein 6.8 g/dL (6.3-8.2)
[2023-08-10 06:40] LABS: Lactate (Lactic Acid) 1.2 mmol/L (0.7-2.1)
[2023-08-10 06:43] LABS: Alkaline Phosphatase 57 U/L (38-126); Aspartate Aminotransferase 37 IU/L (14-36); HEMOLYSIS 70 (0-50)
[2023-08-10] MEDS: PIPERACILLIN/TAZO 4.5 GM in SODIUM CHLORIDE 0.9% 100 ML IV (07:55)
[2023-08-10] MEDS: DEXTROSE 5%-0.45% NS 1,000 ML 100 ML IV ×2 (09:04→18:32)
[2023-08-10 09:28] LABS: Appearance Urine UA CLEAR; Bilirubin Urine UA NEGATIVE (NEGATIVE); Color Urine UA YELLOW; Glucose Urine UA NEGATIVE (Negative); Ketones Urine UA NEGATIVE (NEGATIVE); Leukocyte Esterase Urine UA NEGATIVE (NEGATIVE); Nitrite Urine UA NEGATIVE (Negative); Occult Blood Urine UA NEGATIVE (Negative); Protein Urine UA NEGATIVE (Negative); Specific Gravity Urine UA <=1.005 (1.000-1.035); Urobilinogen Urine UA 0.2 E.U./dL (0.2); pH Urine UA 5.5 (4.5-8.0)
[2023-08-10 09:29] LABS: Urine Volume 10mL (spun)
[2023-08-10 09:31] LABS: Bacteria Urine None Seen; Culture Indicated Urine Cult Not Indicated; RBC Urine None Seen (0-5/HPF); Squamous Epithelial Cell Urine None Seen (0-5/HPF); WBC Urine None Seen (0-5/HPF)
[2023-08-10 11:09] LABS: MRSA (Nasal) PCR NOT DETECTED (Not Detect)
[2023-08-10] MEDS: OXYCODONE IR 5 MG TABLET PO (11:43)
[2023-08-10] MEDS: IBUPROFEN 400 MG TABLET PO ×4 (11:53→23:57)
[2023-08-10] MEDS: ACETAMINOPHEN 325 MG TABLET 650 MG PO ×2 (13:19→19:55)
--- NOTE | 2023-08-10 14:02 | P.HP_ITS ---
History of Present Illness History of Present Illness Date Patient Seen: 08/10/23 Time Patient Seen: 14:02 Chief complaint: abd pain x1 week Narrative: Actually report 3days of RLQ pain. Interesting circumstances, was on doxycyline of ocular issues when discomfort started but she stopped the antibiotic thinking it was the cause. Pain is RLQ, intermittent and sharp. NO emesis, fever or chills. CTscan reviewed and reported as no perforation, no fecal lith. I think I may see a small abcess. [facility] Medical History Systolic heart failure Ischemic cardiomyopathy Finger fracture (~1999) Shoulder pain (2008) Shingles Chicken pox Measles Abnormal Pap smear of cervix (1997) Colon polyps (2008) Goiter Cervical cancer (1997) Skin cancer (1994) History of placement of stent in LAD coronary artery (2009) Pacemaker Thyroid nodule (2013) Hyperlipidemia (07/23/15) Essential hypertension (07/23/15) Coronary artery disease involving [place] coronary artery of [place] heart without angina pectoris (07/23/15) Surgical History History of colonoscopy (2013) Anesthesia Status post hysterectomy (1997) History of tonsillectomy Family History Brother Age: 75 Hypertension High cholesterol Pulmonary disease Father Coronary artery disease involving [place] coronary artery of [place] heart without angina pectoris Cancer Heart disease Hypertension High cholesterol Stroke Grandfather Cancer Grandmother Cancer Mother Malignant neoplasm of female breast, unspecified laterality, unspecified site of breast Liver cancer Lung cancer Grandfather Heart disease Social History marital status: household members: spouse pets and animals: Yes education level: college other: gardening,walking seatbelt use: always water heater temp set < 120 deg: Yes working smoke detector in home: Yes fire extinguisher in home: Yes carbon monox detector in home: No firearms in home: No do you feel safe at home: Yes Smoking Status: Former smoker second hand exposure: No alcohol intake: current substance use type: does not use during the past year weight has: remained stable daily servings fruits/ve-4 caffeine: Yes Type(s) of exercise: walking frequency: 5-6 times per week duration: 30-45 minutes/day Meds Home Medications and Allergies Home Medications Medication Instructions Recorded Confirmed Type ASPIRIN (Aspirin Low Dose) 81 mg PO Q DAY ##0 06/27/09 08/10/23 History furosemide 20 mg tablet 10 mg PO DAILY 10/11/17 08/10/23 History cholecalciferol (vitamin D3) 50 2,000 unit PO DAILY 10/30/18 08/10/23 History mcg (2,000 unit) capsule enalapril maleate 20 mg tablet 10 mg (1/2 x 20 mg) PO BID #180 03/27/20 08/10/23 Rx tabs carvedilol 25 mg tablet (Coreg) 25 mg PO BID 05/26/20 08/10/23 History omeprazole 20 mg capsule,delayed 20 mg PO .COMPLEX #60 caps 03/16/22 08/10/23 Rx release doxycycline hyclate 100 mg capsule 100 mg PO DAILY 08/10/23 08/10/23 History Allergies Allergy/AdvReac Type Severity Reaction Status Date / Time [id number] Reductase Allergy Mild high Verified 12/28/22 09:31 Inhibitor dose-muscle [[id number] REDUCTASE pain,hair INHIBITOR] loss Review of Systems Review of Systems ROS: Yes All systems reviewed with the patient and are negative except as otherwise documented Exam Vital Signs (past 8 hours): - 08/10/23 06:21 08/10/23 06:21 08/10/23 06:30 Temperature Pulse Rate 60 60 Respiratory Rate Blood Pressure 109/58 L Pulse Oximetry 96 95 Oxygen Delivery Method Oxygen Flow Rate 08/10/23 06:30 08/10/23 07:01 08/10/23 07:30 Temperature Pulse Rate 60 60 Respiratory Rate 16 14 Blood Pressure 115/57 L Pulse Oximetry 97 96 Oxygen Delivery Method Room Air Room Air Oxygen Flow Rate 08/10/23 07:57 08/10/23 07:57 08/10/23 08:00 Temperature Pulse Rate 60 Respiratory Rate Blood Pressure 122/67 130/69 Pulse Oximetry 97 Oxygen Delivery Method Oxygen Flow Rate 08/10/23 08:00 08/10/23 08:30 08/10/23 08:30 Temperature Pulse Rate 60 60 Respiratory Rate 14 Blood Pressure 122/61 Pulse Oximetry 97 96 Oxygen Delivery Method Oxygen Flow Rate 08/10/23 09:30 08/10/23 12:00 Temperature 99.6 F 99.3 F Pulse Rate 68 61 Respiratory Rate 18 16 Blood Pressure 113/56 L 110/56 L Pulse Oximetry 98 97 Oxygen Delivery Method Oxygen Flow Rate 0 0 Oxygen Delivery Method Room Air Oxygen Flow Rate 0 Const General: cooperative, comfortable and No in distress Nutritional Appearance: average body habitus [facility] Head: normocephalic and atraumatic Ears: hearing grossly normal bilaterally Eyes Sclera: sclerae normal Neck Neck: trachea midline Resp Effort & Inspection: normal respiratory effort and able to speak in complete sentences Cardio Rate: regular rate Rhythm: regular rhythm GI Palpation: soft and tender (mild tenderness RLQ to palpation. Moves freely in bed) Skin General: atrophy and dry skin Neuro General: patient alert, patient awake and patient oriented x3 Cognition: normal cognition Psych Mental Status: mental status grossly normal Attitude: cooperative Judgment: judgment good Objective Labs 08/10/23 06:05 08/10/23 06:05 Labs: Laboratory Results - last 24 hr 08/10/23 08/10/23 08/10/23 06:05 09:20 09:40 WBC 12.7 H RBC 4.59 Hgb 14.1 Hct 41.6 MCV 90.6 MCH 30.6 MCHC 33.8 RDW 13.7 Plt Count 153 Neut % (Auto) 83.0 H Lymph % (Auto) 6.9 L [place] % (Auto) 9.4 Eos % (Auto) 0.1 L Baso % (Auto) 0.6 Neut # (Auto) 76938 H Lymph # (Auto) 900 L [place] # (Auto) 1200 H Eos # (Auto) 0 Baso # (Auto) 100 Sodium 136 L Potassium 4.0 Chloride 106 Carbon Dioxide 26 BUN 12 Creatinine 0.71 Estimated GFR > 60 BUN/Creatinine Ratio 16.9 Glucose 123 H Lactate 1.2 Calcium 9.3 Total Bilirubin 1.3 AST 37 H ALT 24 Alkaline Phosphatase 57 Total Protein 6.8 Albumin 3.9 Globulin 2.9 Albumin/Globulin Ratio 1.3 Lipase 44 Urine Color Yellow Urine Appearance Clear Urine pH 5.5 Ur Specific [place] <=1.005 Urine Protein Negative Urine Glucose (UA) Negative Urine Ketones Negative Urine Occult Blood Negative Urine Nitrate Negative Urine Bilirubin Negative Urine Urobilinogen 0.2 Ur Leukocyte Esterase Negative Urine RBC None seen Urine WBC None seen Ur Squamous Epith Cells None seen Urine Bacteria None seen Ur Culture Indicated? Cult not indicated Vol Urine Centrifuged 10ml (spun) Nasal Screen MRSA (PCR) Not detected Assessment & Plan Assessment & Plan narrative: Discussed medical management vs surgery and given the cardiac history, recommended trial of antibiotics. Plan: Zosyn IV along with observation. Surgery if fails to improve. Interval appendectomy also covered in conversation. Time Spent With Patient Time with patient: less than 30 minutes
[2023-08-10] MEDS: PIPERACILLIN/TAZO 3.375 GM in SODIUM CHLORIDE 0.9% 100 ML IV (18:29)
[2023-08-11] VITALS: BP 92/54; PULSE 57; RESP 17; TEMP 36.2; O2SAT 96
[2023-08-11] MEDS: ACETAMINOPHEN 325 MG TABLET 650 MG PO ×3 (02:07→13:05)
[2023-08-11] MEDS: DEXTROSE 5%-0.45% NS 1,000 ML 100 ML IV (02:07)
[2023-08-11] MEDS: PIPERACILLIN/TAZO 3.375 GM in SODIUM CHLORIDE 0.9% 100 ML IV (02:07)
[2023-08-11 04:00] VITALS: BP 96/57; PULSE 69; RESP 17; TEMP 36.1; O2SAT 96
[2023-08-11] MEDS: IBUPROFEN 400 MG TABLET PO ×3 (04:03→13:05)
[2023-08-11 04:57] LABS: Add Manual Diff / Slide Review NO; Basophils Absolute Auto 100 /uL (0-100); Basophils Percent Auto 0.6 % (0-2); Eosinophils Absolute Auto 100 /uL (0-450); Eosinophils Percent Auto 1.1 % (2-4); Hematocrit 33.5 % (36-46); Hemoglobin 11.4 g/dL (12.0-16.0); Lymphocytes Absolute Auto 800 /uL (1100-4500); Lymphocytes Percent Auto 8.5 % (25-40); Mean Corpuscular HGB Conc 34.1 % (30-36); Mean Corpuscular Volume 90.8 fL (80-100); Monocytes Absolute Auto 800 /uL (0-900); Monocytes Percent Auto 8.7 % (3-14); Neutrophils Absolute Auto 7300 /uL (1500-7000); Neutrophils Percent Auto 81.1 % (50-75); Platelet Count 120 X10^3/uL (150-400); Red Blood Cell Count 3.69 X10^6/uL (4.0-5.2)
[2023-08-11] MEDS: PANTOPRAZOLE DR 20 MG TABLET PO (05:39)
[2023-08-11 08:07] VITALS: BP 107/57; PULSE 67; RESP 18; TEMP 36.2; O2SAT 97
[2023-08-11] MEDS: CHOLECALCIFEROL (VITAMIN D3) 1,000 UNIT TABLET 2000 UNIT PO (08:39)
[2023-08-11] MEDS: AMOXICILLIN/CLAV 875/125 MG 1 TAB PO (08:39)
[2023-08-11] MEDS: ASPIRIN EC 81 MG TABLET PO (08:39)
[2023-08-11 08:40] VITALS: BP 107/55; PULSE 60
--- NOTE | 2023-08-11 11:34 | CM.DANOTE ---
Addendum entered by KAL Beebe 08/11/23 12:04: ADD: Patient and spouse live on [facility], have some farm land and animals. Original Note: Initial DCP Assessment Note Pt is a 73 yo female, resident of [place], arrives with persistent abd pain, admitted for conservative management and monitoring by general surgery. PCP: Magda Castellon Payer: YARED/Katie Reviewed chart, met w/patient and spouse to introduce role. Patient lives on [facility] with spouse, indp in all aspects. Patient denies needs from this CM team, appreciative for the visit. No barriers identified at this time to patient's safe discharge home w/family to assist; close outpatient f/u recommended. CM team will plan to follow clinical course closely in case any DC needs or concerns arise. KAL Price Discharge Planning/Care Management CM Discharge Assessment Start: 08/11/23 11:30 Freq: Status: Active Protocol: Document 08/11/23 11:31 MEKHI (Rec: 08/11/23 11:34 [id number]) Discharge Planning Assessment Assigned Line And Frame Poler KAL Cardoza DPOA/Assigned Designee Name Maykel Winter, spouse Contact Information [phone] or [phone] Advance Directives? Yes Advance Directives on File No History Provided By Patient,Significant Other, Medical Record Prior Living Arrangements House Household Members spouse Type of transporation used prior to Drives own vehicle admit Independent with ADL's Yes Is patient alert and oriented? Yes Barriers to Discharge No Discharge Plan Home Transportation Arrangement Spouse Referrals Initiated None needed
[2023-08-11 12:00] VITALS: BP 95/52; PULSE 60; RESP 16; O2SAT 97
--- NOTE | 2023-08-11 13:20 | P.PN_ITS ---
Exam Vital Signs (past 8 hours): - 08/11/23 08:07 08/11/23 08:40 08/11/23 08:40 Temperature 97.1 F L Pulse Rate 67 60 60 Respiratory Rate 18 Blood Pressure 107/57 L 107/55 L 107/55 L Pulse Oximetry 97 Oxygen Flow Rate 08/11/23 12:00 Temperature Pulse Rate 60 Respiratory Rate 16 Blood Pressure 95/52 L Pulse Oximetry 97 Oxygen Flow Rate 0 Oxygen Delivery Method Room Air Oxygen Flow Rate 0 Objective Labs 08/11/23 04:07 08/10/23 06:05 Labs: Laboratory Results - last 24 hr 08/11/23 04:07 WBC 9.0 RBC 3.69 L Hgb 11.4 L Hct 33.5 L MCV 90.8 MCH 31.0 MCHC 34.1 RDW 14.0 Plt Count 120 L Neut % (Auto) 81.1 H Lymph % (Auto) 8.5 L Keith % (Auto) 8.7 Eos % (Auto) 1.1 L Baso % (Auto) 0.6 Neut # (Auto) 7300 H Lymph # (Auto) 800 L Keith # (Auto) 800 Eos # (Auto) 100 Baso # (Auto) 100 PFSH Medical History Systolic heart failure Ischemic cardiomyopathy Finger fracture (~1999) Shoulder pain (2008) Shingles Chicken pox Measles Abnormal Pap smear of cervix (1997) Colon polyps (2008) Goiter Cervical cancer (1997) Skin cancer (1994) History of placement of stent in LAD coronary artery (2009) Pacemaker Thyroid nodule (2013) Hyperlipidemia (07/23/15) Essential hypertension (07/23/15) Coronary artery disease involving [place] coronary artery of [place] heart without angina pectoris (07/23/15) Surgical History History of colonoscopy (2013) Anesthesia Status post hysterectomy (1997) History of tonsillectomy Family History Brother Age: 75 Hypertension High cholesterol Pulmonary disease Father Coronary artery disease involving [place] coronary artery of [place] heart without angina pectoris Cancer Heart disease Hypertension High cholesterol Stroke Grandfather Cancer Grandmother Cancer Mother Malignant neoplasm of female breast, unspecified laterality, unspecified site of breast Liver cancer Lung cancer Grandfather Heart disease Social History marital status: household members: spouse pets and animals: Yes education level: college other: gardening,walking seatbelt use: always water heater temp set < 120 deg: Yes working smoke detector in home: Yes fire extinguisher in home: Yes carbon monox detector in home: No firearms in home: No do you feel safe at home: Yes Smoking Status: Former smoker second hand exposure: No alcohol intake: current substance use type: does not use during the past year weight has: remained stable daily servings fruits/ve-4 caffeine: Yes Type(s) of exercise: walking frequency: 5-6 times per week duration: 30-45 minutes/day
--- NOTE | 2023-08-11 15:06 | P.DS_ITS ---
History of Present Illness History of Present Illness Date Patient Seen: 08/11/23 Time Patient Seen: 15:06 Chief complaint: abd pain x1 week Narrative: Actually report 3days of RLQ pain. Interesting circumstances, was on doxycyline of ocular issues when discomfort started but she stopped the antibiotic thinking it was the cause. Pain is RLQ, intermittent and sharp. NO emesis, fever or chills. CTscan reviewed and reported as no perforation, no fecal lith. I think I may see a small abcess. Discharge Providers Provider Date of admission: 08/10/23 08:03 Discharge Date: 08/11/23 Primary care physician: aMgda Castellon MD Discharge provider: Henna Beckman MD Summary Hospital Course Discharge Diagnosis: uncomplicated acute appendicitis Plan: medical management of Augmentin x 7 days Hospital Course: IV antibiotics and observation with repeat labs Status at Discharge Cognitive/behavioral status at discharge: at baseline, oriented Functional status at discharge: independent ambulation Overall status at discharge: patient is progressing back to baseline Time Spent with Patient Time spent: Greater than 30 minutes Exam Vital Signs (past 8 hours): - 08/11/23 08:07 08/11/23 08:40 08/11/23 08:40 Temperature 97.1 F L Pulse Rate 67 60 60 Respiratory Rate 18 Blood Pressure 107/57 L 107/55 L 107/55 L Pulse Oximetry 97 Oxygen Flow Rate 08/11/23 12:00 Temperature Pulse Rate 60 Respiratory Rate 16 Blood Pressure 95/52 L Pulse Oximetry 97 Oxygen Flow Rate 0 Oxygen Delivery Method Room Air Oxygen Flow Rate 0 Objective Labs 08/11/23 04:07 08/10/23 06:05 Labs: Laboratory Results - last 24 hr 08/11/23 04:07 WBC 9.0 RBC 3.69 L Hgb 11.4 L Hct 33.5 L MCV 90.8 MCH 31.0 MCHC 34.1 RDW 14.0 Plt Count 120 L Neut % (Auto) 81.1 H Lymph % (Auto) 8.5 L Miller % (Auto) 8.7 Eos % (Auto) 1.1 L Baso % (Auto) 0.6 Neut # (Auto) 7300 H Lymph # (Auto) 800 L Miller # (Auto) 800 Eos # (Auto) 100 Baso # (Auto) 100 PFSH Medical History Systolic heart failure Ischemic cardiomyopathy Finger fracture (~1999) Shoulder pain (2008) Shingles Chicken pox Measles Abnormal Pap smear of cervix (1997) Colon polyps (2008) Goiter Cervical cancer (1997) Skin cancer (1994) History of placement of stent in LAD coronary artery (2009) Pacemaker Thyroid nodule (2013) Hyperlipidemia (07/23/15) Essential hypertension (07/23/15) Coronary artery disease involving [place] coronary artery of [place] heart without angina pectoris (07/23/15) Surgical History History of colonoscopy (2013) Anesthesia Status post hysterectomy (1997) History of tonsillectomy Family History Brother Age: 75 Hypertension High cholesterol Pulmonary disease Father Coronary artery disease involving [place] coronary artery of [place] heart without angina pectoris Cancer Heart disease Hypertension High cholesterol Stroke Grandfather Cancer Grandmother Cancer Mother Malignant neoplasm of female breast, unspecified laterality, unspecified site of breast Liver cancer Lung cancer Grandfather Heart disease Social History marital status: household members: spouse pets and animals: Yes education level: college other: gardening,walking seatbelt use: always water heater temp set < 120 deg: Yes working smoke detector in home: Yes fire extinguisher in home: Yes carbon monox detector in home: No firearms in home: No do you feel safe at home: Yes Smoking Status: Former smoker second hand exposure: No alcohol intake: current substance use type: does not use during the past year weight has: remained stable daily servings fruits/ve-4 caffeine: Yes Type(s) of exercise: walking frequency: 5-6 times per week duration: 30-45 minutes/day Discharge Plan Discharge Plan Patient Disposition: Home Discharge orders & Medications Prescriptions: New amoxicillin-pot clavulanate 875-125 mg Tablet 1 tab PO BID Qty: 14 0RF oxycodone 5 mg Tablet 5 mg PO Q3H PRN (Reason: Pain, Moderate (4-6)) Qty: 10 0RF Continued carvedilol [Coreg] 25 mg tablet 25 mg PO BID Rx Instructions: must administer with a meal/food cholecalciferol (vitamin D3) 2,000 unit capsule 2,000 unit PO DAILY omeprazole 20 mg capsule,delayed release(DR/EC) 20 mg PO .COMPLEX Qty: 60 3RF Rx Instructions: 20 mg orally QDAY - BID; Take one capsule twice daily for 2 weeks, then once daily thereafter ASPIRIN (Aspirin Low Dose) 81 mg PO Q DAY Qty: 0 enalapril maleate 20 mg tablet 10 mg PO BID Qty: 180 0RF Rx Instructions: NEEDS TO BE SEEN FOR REFILLS furosemide 20 mg tablet 10 mg PO DAILY doxycycline hyclate 100 mg capsule 100 mg PO DAILY Follow up/Referrals: Magda Castellon MD [Primary Care Provider] - Diet/Activity/Treatments Diet: Diet as Tolerated Skin/Wound/Dressing Care Report to your healthcare provider any signs of infection, such as:: chills, fever and increased pain Visit Report/Discharge Packet Stand Alone Forms: Patient Portal/API, Stroke Signs & Symptoms Discharge Data Primary Care Provider: Magda Castellon Attending Provider: Henna Beckman Admdick Date/Time: 08/10/23 08:03
[2023-08-11 16:00] VITALS: BP 129/58; PULSE 62; RESP 16; O2SAT 96
--- NOTE | 2023-08-11 17:20 | PC.NURSE ---
Discharge: Pt agreeable to discharge. IV discontinued, pt educated on stroke s/s, worsening symptoms. Pt ambulated to private vehicle with spouse at 1715.
== END 2023-08-11 17:15 | disposition home or self-care (01) ==
LOC: ED 07:47 → ICU 08:46 → AC 08-11 08:59 → ICU 08-11 08:59
PROVIDERS: Emergency Medicine; Admitting Provider Surgery; Emergency Provider Emergency Medicine; PCP Family Medicine; Referring Provider Emergency Medicine; Visit Provider Surgery
DX: K35.80 Unspecified acute appendicitis (principal); K38.1 Appendicular concretions
CPT/HCPCS: 36415; 74177; 80053; 81001; 83605; 83690; 85025; 87797; 96361; 96365; 96366; 96375; 99222; 99238; 99284; G0378; J2270; J2405; J2543; Q9967

== ENCOUNTER → 2023-08-24 14:06 | Outpatient (CLI) | payer MEDICARE, OTHER, SELFPAY ==
[2018-10-01 15:20] VITALS: BMI 25.0
[2023-08-10 09:08] VITALS: BMI 24.2
--- NOTE | 2023-08-24 14:07 | DI.CT.S_ITS ---
PROCEDURE: CT ABDOMEN PELVIS W CON INDICATIONS: f/u acute appendicitis, RLQ abdominal pain TECHNIQUE: After the administration of intravenous contrast, axial sections acquired from the lung bases to the pubic symphysis. Coronal and sagittal reformats were performed. For radiation dose reduction, the following was used: automated exposure control, adjustment of mA and/or kV according to patient size. COMPARISON: [facility], CT, CT ABDOMEN PELVIS W CON, 08/10/2023, 6:50. FINDINGS: Image quality: Diagnostic. Lower Chest: Mild cardiomegaly, pacemaker. ABDOMEN: Liver: Again noted is flash filling of a lesion in the right lobe of the liver, segment 5/6, potentially increased in size. The lesion measured approximately 1.2 cm on the previous study, and may measure 1.2 x 2.0 cm on the current study. It has peripheral shunting. Gallbladder: Contracted. No calcified stones or wall thickening. Biliary ducts: No biliary dilation. Pancreas: No ductal dilation. Spleen: Size is within normal limits. Adrenal Glands: Bilateral indeterminate adrenal nodules are also again noted, left greater than right. Kidneys and Ureters: No hydronephrosis. No solid mass. No complex renal cystic lesion which requires follow up. Stomach and Bowel: Again noted are findings consistent with acute nonruptured appendicitis. The appendix measures 12.4 mm and has diffuse wall enhancement. There is no surrounding fluid or abscess cavity or free air. There is mild thickening of the subjacent wall of the cecum. Peritoneum: No abnormal intraperitoneal fluid. No free air. Ventral Wall: No significant ventral hernia. Abdominal Nodes: No retroperitoneal or mesenteric adenopathy by size criteria. Vessels: Aorta and inferior vena cava are normal in size. PELVIS: Pelvic Organs: Uterus is surgically absent.. Bladder: No bladder wall thickening, accounting for underdistention. Pelvic Nodes: No enlarged lymph nodes. Miscellaneous: No inguinal hernias are seen. Bones: No aggressive osseous abnormality. IMPRESSION: 1. Findings are consistent with recurrent acute appendicitis. There is no evidence of rupture. There is no abscess. 2. And indeterminate right lobe liver lesion appears to have possibly grown since the previous study. This is not definite. There has only been 2 weeks between the 2 studies. 3. Bilateral indeterminate adrenal nodules. Comment: In addition to definitive treatment of appendicitis, would recommend nonemergent multiphase MRI to evaluate the liver lesion and adrenals. Dictated by: Gildardo Buchanan M.D. on 08/24/2023 at 15:58 Approved by: Gildardo Buchanan M.D. on 08/24/2023 at 16:09
== END ==
PROVIDERS: PCP Family Medicine; Referring Provider Family Medicine; Visit Provider Family Medicine
DX: K35.80 Unspecified acute appendicitis (principal); I51.7 Cardiomegaly; Z95.0 Presence of cardiac pacemaker; K76.9 Liver disease, unspecified; E27.9 Disorder of adrenal gland, unspecified
CPT/HCPCS: 74177; Q9967

== ENCOUNTER 2023-08-25 12:30 | Day surgery (SDC) | payer MEDICARE, OTHER, SELFPAY ==
[2018-10-01 15:20] VITALS: BMI 25.0
[2023-08-10 09:08] VITALS: BMI 24.2
[2023-08-25] VITALS (7 sets, daily range): BP systolic 144–163; BP diastolic 67–81; PULSE 60–63; RESP 12–17; TEMP 36.2–37; O2SAT 94–99; BMI 23.3
--- NOTE | 2023-08-25 | PATH_ITS ---
[facility] Accession Number: [id number] No. of containers..01 Tissue . 01 Material submitted: . appendix - APPENDIX . 01 Diagnosis: APPENDIX, APPENDECTOMY: Consistent with acute appendicitis and periappendicitis. [facility] 08/30/2023 1033 Local . 01 Electronically signed: . Rozina Castro MD, Pathologist NPI- [id number] . 01 Gross description: . Received in formalin with two identifiers and appendix, is a short appendix with possibly attached portion of cecum measuring 4.2 cm in length and ranging from 1.2 to 3.2 cm in diameter. The serosa is carranza to brown and diffusely roughened with a full thickness defect possibly consistent with surgical incision measuring 1.0 cm in greatest dimension located 0.5 cm from the presumed distal tip. The staple line is extended measuring 4.2 cm in length which is removed, and this margin is inked blue. The area of defect is inked orange, while the remaining serosa is inked green. The lumen ranges from 0.5 to 1.3 cm in diameter and is filled with red-brown semi-solid material. The king average 0.3 cm thick with no lesions identified. [employer] sections are submitted as follows: A1: Margin en face. A2: Entire bisected distal tip. A3: Cross-section. ([id number]) /[facility] 08/26/2023 2149 Local . 01 Pathologist provided ICD-10: K35.80 . 01 CPT . 072774 Specimen Comment: A courtesy copy of this report has been sent to [phone] Performed at: [address] [address], [place], [place] [id number] MD Jaleel Deleon MD Phone: [phone]
[2023-08-25] MEDS: LACTATED RINGERS 1,000 ML 42 ML IV (13:59)
--- NOTE | 2023-08-25 14:41 | P.HP_ITS ---
History of Present Illness History of Present Illness Chief complaint: Lap Blanca Narrative: Oleg is a 73-year-old woman H coronary artery disease, ischemic cardiomyopathy, biventricular defibrillator who is here for appendectomy. She was briefly hospitalized August 09 for appendicitis treated with IV antibiotic therapy discharged on p.o. antibiotics. Now after 2 weeks of Augmentin she is failing to improve. CT abdomen pelvis was repeated yesterday which demonstrates continued acute appendicitis without abscess. She has a remote history of myocardial infarction status post LAD stent 2008 and subsequent ischemic cardiomyopathy and biventricular defibrillator placement followed by [facility]. EF has been as low as 35% and she reports that most recently it has been closer to 50-55%. More recently she has been walking up to 16,000 steps per day without shortness of breath or angina. Previous abdominal surgery includes open hysterectomy for history of cervical cancer [facility] Medical History (Updated 08/25/23 @ 14:50 by Nestor Nixon MD) Systolic heart failure Ischemic cardiomyopathy Finger fracture (~1999) Shoulder pain (2008) Shingles Chicken pox Measles Abnormal Pap smear of cervix (1997) Colon polyps (2008) Goiter Cervical cancer (1997) Skin cancer (1994) History of placement of stent in LAD coronary artery (2009) Pacemaker Thyroid nodule (2013) Hyperlipidemia (07/23/15) Essential hypertension (07/23/15) Coronary artery disease involving [place] coronary artery of [place] heart without angina pectoris (07/23/15) Surgical History History of colonoscopy (2013) Anesthesia Status post hysterectomy (1997) History of tonsillectomy Family History Brother Age: 75 Hypertension High cholesterol Pulmonary disease Father Coronary artery disease involving [place] coronary artery of [place] heart without angina pectoris Cancer Heart disease Hypertension High cholesterol Stroke Grandfather Cancer Grandmother Cancer Mother Malignant neoplasm of female breast, unspecified laterality, unspecified site of breast Liver cancer Lung cancer Grandfather Heart disease Social History marital status: household members: spouse pets and animals: Yes education level: college other: gardening,walking seatbelt use: always water heater temp set < 120 deg: Yes working smoke detector in home: Yes fire extinguisher in home: Yes carbon monox detector in home: No firearms in home: No do you feel safe at home: Yes Smoking Status: Former smoker second hand exposure: No alcohol intake: current substance use type: does not use during the past year weight has: remained stable daily servings fruits/ve-4 caffeine: Yes Type(s) of exercise: walking frequency: 5-6 times per week duration: 30-45 minutes/day Meds Home Medications and Allergies Home Medications Medication Instructions Recorded Confirmed Type ASPIRIN (Aspirin Low Dose) 81 mg PO Q DAY ##0 06/27/09 08/25/23 History furosemide 20 mg tablet 10 mg PO DAILY 10/11/17 08/25/23 History cholecalciferol (vitamin D3) 50 2,000 unit PO DAILY 10/30/18 08/25/23 History mcg (2,000 unit) capsule enalapril maleate 20 mg tablet 10 mg (1/2 x 20 mg) PO BID #180 03/27/20 08/25/23 Rx tabs carvedilol 25 mg tablet (Coreg) 25 mg PO BID 05/26/20 08/25/23 History omeprazole 20 mg capsule,delayed 20 mg PO .COMPLEX #60 caps 03/16/22 08/25/23 Rx release doxycycline hyclate 100 mg capsule 100 mg PO DAILY 08/10/23 08/25/23 History amoxicillin 875 mg-potassium 1 tab PO BID #14 tabs 08/11/23 08/23/23 Rx clavulanate 125 mg tablet oxycodone 5 mg tablet 5 mg PO Q3H PRN Pain, Moderate 08/11/23 08/23/23 Rx (4-6) #10 tabs Allergies Allergy/AdvReac Type Severity Reaction Status Date / Time Aaqwnhs-IWT-SbI Reductase Allergy Mild high Verified 08/23/23 10:23 Inhibitor dose-muscle [[id number] REDUCTASE pain,hair INHIBITOR] loss amoxicillin [From Augmentin] AdvReac Diarrhea Verified 08/23/23 10:47 clavulanic acid AdvReac Diarrhea Verified 08/23/23 10:47 [From Augmentin] Exam Vital Signs (past 8 hours): - 08/25/23 13:52 Temperature 98.6 F Pulse Rate 60 Respiratory Rate 17 Blood Pressure 155/81 H Pulse Oximetry 99 Oxygen Delivery Method Room Air Oxygen Delivery Method Room Air Narrative Exam Narrative: General adult woman alert oriented no acute distress Chest nonlabored respiration Abdomen tender right lower quadrant no peritonitis Extremities warm well perfused Assessment & Plan Assessment and plan (1) Acute appendicitis: Qualifiers: Acute appendicitis type: unspecified acute appendicitis type Qualified Code(s): K35.80 - Unspecified acute appendicitis Status: Acute Assessment & Plan narrative: 73-year-old woman PMH coronary artery disease congestive heart failure with good functional status with acute appendicitis failing to improve with antibiotic therapy. Recommended we proceed with a laparoscopic appendectomy. Overview of the operation was discussed. Operative risks including but not limited to hemorrhage, infection, staple line leak, damage to surrounding structure conversion to open were reviewed. Questions have been answered she is in agreement with this plan. She provides her consent to proceed.
[2023-08-25] MEDS: PIPERACILLIN/TAZO 4.5 GM in SODIUM CHLORIDE 0.9% 100 ML IV (15:20)
[2023-08-25] MEDS: ACETAMINOPHEN IV 1,000 MG/100 ML VIAL 400 MG IV (15:40)
--- NOTE | 2023-08-25 15:50 | SUR.OPER ---
Supine on padded OR bed, head on pillow, left arm padded and tucked at side, right arm on armboard. legs uncrossed, safety belt at thigh, tape over blanket over lower legs .
[2023-08-25] MEDS: BUPIVACAINE 0.25% (PF) VIAL 30 ML INJ (16:00)
--- NOTE | 2023-08-25 16:58 | P.OP_ITS ---
Operative Date/Time/Diagnoses Date of procedure: 08/25/23 Time of procedure: 16:58 Pre-op diagnosis: Acute appendicitis Post-op diagnosis: same Procedure & Clinicians Procedure: Laparoscopic appendectomy Same procedure as scheduled: Yes Indications: 73-year-old woman who was treated with antibiotic therapy for acute appendicitis for the past 2 weeks with failure to improve. She is taken to the operating room today for appendectomy Surgeon: Nestor Nixon Click Yes if Unassisted: Yes Anesthesia Type: General Operative Notes Findings: Tip of the appendix is embedded in the pelvic sidewall. No abscess. No purulent peritonitis. Oozing within the right pericolic gutter patient is currently on aspirin Specimen(s): other (Appendix) Procedure in detail: Patient was brought to the operating room placed supine on the table. Bilateral lower extremity compression devices were applied. Anesthesia was induced and they intubated with an endotracheal tube. They received 3.375 g of Zosyn prior to skin incision. The left arm was tucked and appropriately padded. They were prepped and draped in sterile fashion. Time-out was performed. An infraumbilical incision was made the umbilical stalk was grasped and elevated and incision was made and the abdomen was entered atraumatically. A 12 mm balloon trocar was then placed through the incision and pneumoperitoneum of 14 mm Hg was established. The scope was then inserted and the abdomen inspected, there was no evidence of injury upon entry. Two 5 mm ports were placed under direct visualization, one in the left lower quadrant and second in the lower midline. A thorough laparoscopic evaluation was performed inspecting all four quadrants. There were dense adhesions within the right lower quadrant which were lysed using the LigaSure. The tip of the appendix was buried in the right pelvic sidewall. No surrounding abscess or purulent peritonitis. The patient was then tilted right side up. The small bowel was then swept to the upper aspect of the abdomen. The tenie were followed to the base of the cecum where the appendix was identified. The mesentery to the appendix was divided using the LigaSure. The appendix was then amputated flush at the cecum using the endo- stapler blue load. The specimen was retrieved using a endoscopic retrieval bag through the 10 mm infra-umbilical port. The specimen was examined and the specimen was opened demonstrating a patent lumen. The right paracolic gutter and the pouch of Wojciech were irrigated The 5 mm ports were then removed under direct visualization. The umbilical fascial incision was closed with 0 Vicryl in a figure-eight fashion. The skin wounds were irrigated and closed with 4-0 Monocryl followed by the application of Dermabond. Sponge instrument count at the end of the operation was correct. The patient tolerated procedure well was extubated and transferred to the postoperative care unit in stable condition. Complications: none Post-operative Condition: stable Disposition: same day surgery
[2023-08-25] MEDS: ONDANSETRON 4 MG/2 ML INJ IV (17:05)
== END 2023-08-25 17:20 | disposition home or self-care (01) ==
PROVIDERS: PCP Family Medicine; Referring Provider Surgery; Visit Provider Surgery
PROC: 0DTJ4ZZ Resection of Appendix, Percutaneous Endoscopic Approach (ICD-10-PCS; CPT 44970; principal; 2023-08-25 14:30)
DX: K35.80 Unspecified acute appendicitis (principal)
CPT/HCPCS: 44970; J0136; J0330; J1100; J2405; J2543; J2704; J3010

== ENCOUNTER → 2023-09-08 09:53 | Outpatient (CLI) | payer MEDICARE, OTHER, SELFPAY ==
[2018-10-01 15:20] VITALS: BMI 25.0
[2023-08-10 09:08] VITALS: BMI 24.2
--- NOTE | 2023-09-08 09:54 | DI.US.S_ITS ---
PROCEDURE: US ABDOMEN COMPLETE INDICATIONS: LIVER LESION, ADRENAL MASSES ON CT TECHNIQUE: Real-time scanning was performed of the abdominal and retroperitoneal organs, with image documentation. COMPARISON: [facility], CT, CT ABDOMEN PELVIS W CON, 08/10/2023, 6:50. [facility], CT, CT ABDOMEN PELVIS W CON, 08/24/2023, 15:00. FINDINGS: Liver: Liver measures 16.5 cm. There is a focus of complex echogenicity within the anterior right lobe measuring 1.8 x 1.9 x 1.7 cm. This corresponds to mass lesion identified on CT. Gallbladder: Unremarkable. Biliary ducts: Intrahepatic bile ducts are non-dilated. Extrahepatic bile duct caliber measures 4.7 mm. Normal is 6-7 mm or less in diameter, or 10 mm or less post-cholecystectomy. Pancreas: Visualized portions of the pancreas are sonographically normal. Spleen: Spleen is normal in size and homogeneous in echotexture. Kidneys: Kidneys are normal in size and echotexture. Right kidney measures 9.5 cm long; left kidney measures 9.3 cm long. No hydronephrosis. 7 mm right renal calcification. No solid masses. Aorta: Visualized aorta is normal in caliber at less than 3 cm. Iliacs: Proximal common iliac arteries are normal in caliber at less than 2.5 cm. IVC: Intrahepatic inferior vena cava is patent. Miscellaneous: No free abdominal fluid. IMPRESSION: Complex focus of echogenicity within the liver corresponding to lesion on CT. It is suggestive but not classic for hemangioma. Given interval growth on CT, CT/MRI with hepatic protocol is recommended. Dictated by: Crys Baires M.D. on 09/08/2023 at 14:02 Approved by: Crys Baires M.D. on 09/08/2023 at 14:05
== END ==
PROVIDERS: PCP Family Medicine; Referring Provider Family Medicine; Visit Provider Family Medicine
DX: K76.9 Liver disease, unspecified (principal); E27.8 Other specified disorders of adrenal gland
CPT/HCPCS: 76700

== ENCOUNTER → 2023-09-16 08:03 | Outpatient (CLI) | payer MEDICARE, OTHER, SELFPAY ==
[2018-10-01 15:20] VITALS: BMI 25.0
[2023-08-10 09:08] VITALS: BMI 24.2
[2023-09-16 08:36] LABS: Estimated Glomerular Filt Rate > 60 mL/min (>60)
== END ==
PROVIDERS: Radiology Diagnostic Radiology; PCP Family Medicine; Referring Provider Family Medicine; Visit Provider Family Medicine
DX: D18.03 Hemangioma of intra-abdominal structures (principal)
CPT/HCPCS: 36415; 82565

== ENCOUNTER → 2023-09-18 10:48 | Outpatient (CLI) | payer MEDICARE, OTHER, SELFPAY ==
[2018-10-01 15:20] VITALS: BMI 25.0
[2023-08-10 09:08] VITALS: BMI 24.2
--- NOTE | 2023-09-18 10:50 | DI.CT.S_ITS ---
PROCEDURE: CT ABDOMEN LIVER PROTOCOL INDICATIONS: follow up, hemangioma TECHNIQUE: 4 phase scanning was performed. Non-contrast 5 mm axial sections acquired from the diaphragm to the iliac crests. Following the administration of intravenous contrast, 5 mm thick arterial-phase, portal venous-phase, and 5-minute delayed phase images were acquired through the liver. 5 mm thick coronal and sagittal reformats were performed. For radiation dose reduction, the following was used: automated exposure control, adjustment of mA and/or kV according to patient size. COMPARISON: [facility], CT, CT ABDOMEN PELVIS W CON, 08/24/2023, 15:00. FINDINGS: Image quality: Diagnostic Lower chest: Lung bases appear unremarkable. Cardiac electrode leads partially seen. There is dyib-eo-kvrqendx distal esophageal wall thickening and patulous appearance. Liver: 1.9 cm hemangioma in the right lobe of the liver, with surrounding perfusion anomaly (2/17). There is discontinuous peripheral enhancement on arterial phase imaging. Gallbladder and biliary system: Unremarkable, nondilated. There is a small duodenal diverticulum adjacent to the ampulla Pancreas: No ductal dilation Spleen: Nonenlarged Adrenals: Bilateral adrenal adenomas measuring up to 1.3 cm on the right and 2.4 cm on the left. Kidneys: No solid renal mass. No hydronephrosis Vessels and lymph nodes: The main portal vein is patent. No abdominal aortic aneurysm. No pathologic lymph nodes by size criteria. Bowel and peritoneum: No evidence of small bowel obstruction. No pathologic ascites or drainable abscess. Body wall: Unremarkable Bones: Degenerative changes. IMPRESSION: 1.9 cm right lobe hepatic hemangioma. Assuming the patient does not have a primary malignancy history, no dedicated follow-up of the liver is necessary. Bilateral adrenal adenomas measuring up to 1.3 cm on the right and 2.4 cm on the left. Correlate with biochemical testing to determine functional status. Dictated by: Zack Ferrell M.D. on 09/18/2023 at 15:49 Approved by: Zack Ferrell M.D. on 09/18/2023 at 15:54
== END ==
PROVIDERS: PCP Family Medicine; Referring Provider Family Medicine; Visit Provider Family Medicine
DX: D18.03 Hemangioma of intra-abdominal structures (principal); D35.02 Benign neoplasm of left adrenal gland; D35.01 Benign neoplasm of right adrenal gland; K57.10 Diverticulosis of small intestine without perforation or abscess without bleeding
CPT/HCPCS: 74170; Q9967

== ENCOUNTER → 2023-09-27 07:40 | Outpatient (CLI) | payer MEDICARE, OTHER, SELFPAY ==
[2018-10-01 15:20] VITALS: BMI 25.0
[2023-08-10 09:08] VITALS: BMI 24.2
[2023-09-29 07:36] LABS: Dehydroepiandrosterone Sulfate 32.5 ug/dL (20.4-186.6)
[2023-10-04 00:20] LABS: Metanephrine,Plasma 51.3 pg/mL (0.0-88.0)
== END ==
PROVIDERS: PCP Family Medicine; Referring Provider Family Medicine; Visit Provider Family Medicine
DX: D18.03 Hemangioma of intra-abdominal structures (principal)
CPT/HCPCS: 36415; 82088; 82627; 83835; 84244

== ENCOUNTER → 2024-04-22 09:48 | Outpatient (CLI) | payer MEDICARE, OTHER, SELFPAY ==
[2018-10-01 15:20] VITALS: BMI 25.0
[2023-08-10 09:08] VITALS: BMI 24.2
[2024-04-26 04:41] LABS: Cortisol Fr ug/24hr urine 17 ug/24 hr (6-42); Cortisol, Free, Urine 10 ug/L (Undefined)
== END ==
PROVIDERS: PCP Family Medicine; Referring Provider Internal Medicine Endocrinology, Diabetes & Metabolism; Visit Provider Internal Medicine Endocrinology, Diabetes & Metabolism
DX: E27.9 Disorder of adrenal gland, unspecified (principal)
CPT/HCPCS: 82530

== ENCOUNTER → 2024-04-23 08:01 | Outpatient (CLI) | payer MEDICARE, OTHER, SELFPAY ==
[2018-10-01 15:20] VITALS: BMI 25.0
[2023-08-10 09:08] VITALS: BMI 24.2
--- NOTE | 2024-04-23 08:02 | DI.MG.S_ITS ---
BILATERAL DIGITAL SCREENING MAMMOGRAM 3D/2D WITH CAD: 04/23/2024 CLINICAL: Routine screening. Family history of breast cancer. Comparison is made to exams dated: 04/03/2023 mammogram, 02/18/2022 mammogram, 02/08/2021 mammogram, 02/03/2020 mammogram, 01/30/2019 mammogram, and 12/25/2017 mammogram - [facility]. The breasts are heterogeneously dense, which may obscure small masses (category c / 51-75% glandular tissue). Current study was also evaluated with a Computer Aided Detection (CAD) system. No significant masses, calcifications, or other findings are seen in either breast. There has been no significant interval change. IMPRESSION: NEGATIVE There is no mammographic evidence of malignancy. A 1 year screening mammogram is recommended. Based on the Tyrer Cuzick model (a risk assessment model) the patient's lifetime risk is 16.1% and her 10 year risk is 13.4%. According to the ACR, ACS, and NCCN guidelines, an annual breast MRI exam along with mammogram is recommended if the patient's lifetime risk is 20% or greater. This exam was interpreted at Station ID: [id number]. NOTE: For mammograms, a report in lay terms will be sent to the patient. Approximately 15% of breast malignancies will not be visualized mammographically. In the management of a palpable breast mass, a negative mammogram must not discourage biopsy of a clinically suspicious lesion. Electronically Signed By: Romina Harrison M.D., Ph.D. justine/vernon:04/23/2024 16:05:40 letter sent: Normal Exam ACR BI-RADS Category 1: Negative
== END ==
PROVIDERS: PCP Family Medicine; Referring Provider Family Medicine; Visit Provider Family Medicine
DX: Z12.31 Encounter for screening mammogram for malignant neoplasm of breast (principal); Z80.3 Family history of malignant neoplasm of breast; R92.333 Mammographic heterogeneous density, bilateral breasts
CPT/HCPCS: 77063; 77067

== ENCOUNTER → 2024-05-09 08:28 | Outpatient (CLI) | payer MEDICARE, OTHER, SELFPAY ==
[2018-10-01 15:20] VITALS: BMI 25.0
[2023-08-10 09:08] VITALS: BMI 24.2
== END ==
PROVIDERS: PCP Family Medicine; Referring Provider Internal Medicine Endocrinology, Diabetes & Metabolism; Visit Provider Internal Medicine Endocrinology, Diabetes & Metabolism
DX: E27.9 Disorder of adrenal gland, unspecified (principal)
CPT/HCPCS: 82533

== ENCOUNTER → 2024-09-04 14:42 | Outpatient (CLI) | payer MEDICARE, OTHER, SELFPAY ==
[2018-10-01 15:20] VITALS: BMI 25.0
[2023-08-10 09:08] VITALS: BMI 24.2
--- NOTE | 2024-09-04 14:44 | DI.RAD.S_ITS ---
PROCEDURE: XR KNEE RT 3V INDICATIONS: knee pain TECHNIQUE: 3 views of the knee were acquired. COMPARISON: None. FINDINGS: Bones: No fractures or dislocations. No suspicious bony lesions. Tricompartmental joint space narrowing with associated bulky osteophytosis. Soft tissues: No joint effusion. No suspicious soft tissue calcifications. IMPRESSION: Vdwc-oh-lcqywiyr tricompartmental osteoarthritis. Kellgren-Andrés Grade 2. Dictated by: Angelo Garnica M.D. on 09/04/2024 at 16:38 Approved by: Angelo Garnica M.D. on 09/04/2024 at 16:39
== END ==
PROVIDERS: PCP Family Medicine; Referring Provider Family Medicine; Visit Provider Family Medicine
DX: M17.11 Unilateral primary osteoarthritis, right knee (principal); M25.561 Pain in right knee
CPT/HCPCS: 73562

== ENCOUNTER → 2024-10-14 08:24 | Outpatient (CLI) | payer MEDICARE, OTHER, SELFPAY ==
[2018-10-01 15:20] VITALS: BMI 25.0
[2023-08-10 09:08] VITALS: BMI 24.2
--- NOTE | 2024-10-14 08:27 | DI.CT.S_ITS ---
PROCEDURE: CT ABDOMEN ADRENAL PROTOCOL INDICATIONS: ADRENAL NODULE TECHNIQUE: Noncontrast 3 mm thick sections acquired from the diaphragms to the iliac crests. After the administration of intravenous contrast, 3 mm thick venous-phase and 15- minute delayed images acquired from the diaphragms to the iliac crests. For radiation dose reduction, the following was used: automated exposure control, adjustment of mA and/or kV according to patient size. COMPARISON: [facility], CT, CT ABDOMEN PELVIS W CON, 08/10/2023, 6:50. [facility], CT, CT ABDOMEN LIVER PROTOCOL, 09/18/2023, 11:22. FINDINGS: Image quality: Diagnostic Lower chest: Trace hiatal hernia. Partially seen cardiac electrode leads. Trace pericardial effusion Liver: Right lobe hemangioma again seen, better characterized on prior liver protocol CT. Non cirrhotic liver contour Gallbladder and biliary system: Unremarkable, nondilated Pancreas: No ductal dilation. Duodenal diverticulum is seen adjacent to the ampulla Spleen: Nonenlarged Adrenals: Bilateral adrenal adenomas again seen, with lipid rich contents measuring up to 3.1 cm on the left and 1.7 cm on the right. Kidneys: No hydronephrosis. No solid renal mass or obstructing stone. Vessels and lymph nodes: Main portal vein appears patent. No abdominal aortic aneurysm or enlarged lymph nodes by size criteria Bowel and peritoneum: No evidence of small bowel obstruction. No drainable ascites Body wall: Unremarkable Bones: No suspicious osseous finding. IMPRESSION: Bilateral adrenal adenomas, with lipid rich contents, similar in size compared to prior imaging. Other findings above. Dictated by: Zack Ferrell M.D. on 10/14/2024 at 12:33 Approved by: Zack Ferrell M.D. on 10/14/2024 at 12:37
[2024-10-14 09:19] LABS: Estimated Glomerular Filt Rate > 60 mL/min (>60)
== END ==
PROVIDERS: PCP Family Medicine; Referring Provider Family Medicine; Visit Provider Internal Medicine Endocrinology, Diabetes & Metabolism
DX: D35.02 Benign neoplasm of left adrenal gland (principal); D35.01 Benign neoplasm of right adrenal gland; D18.09 Hemangioma of other sites; Z95.0 Presence of cardiac pacemaker
CPT/HCPCS: 36415; 74170; 82565; Q9967